=== PATIENT | male | born 1985 | race Caucasian/White ===

== ENCOUNTER 2017-01-08 20:34 | Observation (INO) | payer SELFPAY ==
[~2017-01-08] VITALS: Ht 188 cm; Wt 70.5 kg
[~2017-01-08 20:34] MED LIST: CLIN150 PO; IBUP800T23 PO
[2017-01-08 20:36] VITALS: BP 144/65; PULSE 111; RESP 16; TEMP 99.1; O2SAT 98
--- NOTE | 2017-01-08 21:15 | PD ---
Physical Exam Time Seen by Provider: 21:12 Narrative 31yo M c/o L knee infection x 1 week ago. Denies fever, vomiting. Admits to IV drug; used last yesterday. Patient seen in triage. VS reviewed. Awaiting bed placement. Data Data Last Documented VS Vital Signs Date Time Temp Pulse Resp B/P (MAP) Pulse Ox O2 Delivery O2 Flow Rate FiO2 01/08/17 20:36 99.1 111 16 144/65 (91) 98 Room Air MDM Supervised Visit with SANJEEV: Yolanda Raman Jan 08, 2017 21:15
[2017-01-08] MEDS ORDERED: SODIUM CHLORIDE 0.9% FLUSH 10 ML FLUSH IVF PRN (21:45)
[2017-01-08] MEDS ORDERED: KETOROLAC TROMETHAMINE 30 MG/ML (IVP) VIAL IVP ONE (21:45)
[2017-01-08] MEDS ORDERED: VANCOMYCIN INJ 1,000 MG in SODIUM CHLOR 0.9% 250 ML INJ 250 ML IV ONE (21:45)
[2017-01-08] MEDS ORDERED: CLINDAMYCIN INJ 900 MG in SODIUM CHLORIDE 0.9% INJ 100 ML IV ONE (21:45)
[2017-01-08] MEDS ORDERED: TETANUS/DIPHTHERIA TOXOID ADULT 0.5 ML VIAL IM ONE (21:45)
[2017-01-08] MEDS ORDERED: PIPERACIL-TAZO 4.5 GM PREMIX 100 ML IV ONE (21:45)
--- NOTE | 2017-01-08 21:45 | PD ---
HPI Chief Complaint: Skin Problem Time Seen by Provider: 21:33 Travel History International Travel<30 days: No Contact w/Intl Traveler<30days: No Traveled to known affect area: No History of Present Illness HPI 31-year-old male with history of MRSA presents the emergency department with a tender indurated sore wound to the left lateral knee. Patient states his been present for approximately one week and worse in the last 2 days. Patient is noted to have a low-grade temperature in triage with tachycardia. Pain is 8 out of 10. Patient has history of MRSA in the past. He states had some pus draining from the area earlier today. He has increasing pain along the lateral left knee extending to the left distal lateral thigh. 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 Patient has no known drug allergies. PFSH Past Medical History Hx Anticoagulant Therapy: No Cancer: No Cardiovascular Problems: No Chemotherapy: No Cerebrovascular Accident: No Diabetes: No GERD: Yes Hypertension: Yes Musculoskeletal: No Neurologic: No Psychiatric: No Respiratory: No Immunizations Current: Yes Social History Alcohol Use: Yes (everyday) Tobacco Use: Yes Substance Use: Yes (IV drug use, cocaine) Allergies-Medications (Allergen,Severity, Reaction): Coded Allergies: No Known Allergies (Unverified , 01/08/17) Reported Meds & Prescriptions Reported Meds & Active Scripts Active Review of Systems Except as stated in HPI: all other systems reviewed are Neg General / Constitutional: Positive: Fever, Chills Eyes: No: Visual changes HENT: No: Headaches Cardiovascular: No: Chest Pain or Discomfort Respiratory: No: Shortness of Breath Gastrointestinal: No: Abdominal Pain Genitourinary: No: Dysuria Musculoskeletal: Positive: Arthralgias, Limited ROM, Pain Skin: Positive Lesions (see history of present illness), No Rash Neurologic: No: Weakness Psychiatric: No: Depression Endocrine: No: Polydipsia Hematologic/Lymphatic: No: Easy Bruising Physical Exam Narrative GENERAL: Patient appears in mild to moderate distress. SKIN: Warm and dry. Normal color. Normal turgor. Patient has obvious open wound to the left lateral knee just above the patella with localized erythema, warmth, and induration. There is no palpable abscess appreciated. HEAD: Atraumatic. Normocephalic. EYES: Pupils equal and round. No scleral icterus. No injection or drainage. ENT: No nasal bleeding or discharge. Mucous membranes pink and moist. Pharynx is clear. Airway is patent NECK: Trachea midline. Supple. CARDIOVASCULAR: Regular rate and rhythm. RESPIRATORY: No accessory muscle use. Clear to auscultation. Breath sounds equal bilaterally. MUSCULOSKELETAL: Extremities without clubbing, cyanosis, or edema. No obvious deformities. Patient is able to flex and extend the left knee fully. Neurovascular exam is normal distally. NEUROLOGICAL: Awake and alert. No obvious cranial nerve deficits. Motor grossly within normal limits. Five out of 5 muscle strength in the arms and legs. Normal speech. PSYCHIATRIC: Appropriate mood and affect; insight and judgment normal. Data Data Last Documented VS Vital Signs Date Time Temp Pulse Resp B/P (MAP) Pulse Ox O2 Delivery O2 Flow Rate FiO2 01/08/17 20:36 99.1 111 16 144/65 (91) 98 Room Air Orders Orders Complete Blood Count With Diff (01/08/17 21:38) Blood Culture (01/08/17 21:38) Wound Culture And Gram Stain (01/08/17 21:38) Iv Access Insert/Monitor (01/08/17 21:38) Wound Care (01/08/17 21:38) Ketorolac Inj (Toradol Inj) (01/08/17 21:45) Sodium Chloride 0.9% Flush (Ns Flush) (01/08/17 21:45) Clindamycin Inj (Cleocin Inj) (01/08/17 21:45) Tetanus/Diphtheria Tox Adult (Tetanus/Di (01/08/17 21:45) Lactic Acid (01/08/17 21:38) Comprehensive Metabolic Panel (01/08/17 21:38) Vancomycin Inj (Vancomycin Inj) (01/08/17 21:45) Piperacil-Tazo 4.5 Gm Premix (Zosyn 4.5 (01/08/17 21:45) Knee, Ltd (1 Or 2vws) (01/08/17 21:47) Labs Laboratory Tests Test 01/08/17 21:50 White Blood Count 15.8 TH/MM3 Red Blood Count 4.83 MIL/MM3 Hemoglobin 13.7 GM/DL Hematocrit 42.1 % Mean Corpuscular Volume 87.1 FL Mean Corpuscular Hemoglobin 28.3 PG Mean Corpuscular Hemoglobin Concent 32.5 % Red Cell Distribution Width 14.1 % Platelet Count 304 TH/MM3 Mean Platelet Volume 7.0 FL Neutrophils (%) (Auto) 76.7 % Lymphocytes (%) (Auto) 10.7 % Monocytes (%) (Auto) 10.1 % Eosinophils (%) (Auto) 2.3 % Basophils (%) (Auto) 0.2 % Neutrophils # (Auto) 12.1 TH/MM3 Lymphocytes # (Auto) 1.7 TH/MM3 Monocytes # (Auto) 1.6 TH/MM3 Eosinophils # (Auto) 0.4 TH/MM3 Basophils # (Auto) 0.0 TH/MM3 CBC Comment DIFF FINAL Differential Comment Blood Urea Nitrogen 15 MG/DL Creatinine 0.98 MG/DL Random Glucose 68 MG/DL Total Protein 8.1 GM/DL Albumin 3.7 GM/DL Calcium Level 8.7 MG/DL Alkaline Phosphatase 102 U/L Aspartate Amino Transf (AST/SGOT) 40 U/L Alanine Aminotransferase (ALT/SGPT) 90 U/L Total Bilirubin 0.6 MG/DL Sodium Level 138 MEQ/L Potassium Level 3.3 MEQ/L Chloride Level 102 MEQ/L Carbon Dioxide Level 28.7 MEQ/L Anion Gap 7 MEQ/L Estimat Glomerular Filtration Rate 90 ML/MIN Lactic Acid Level 1.7 mmol/L [facility] Medical Decision Making Medical Screen Exam Complete: Yes Emergency Medical Condition: Yes Medical Record Reviewed: Yes Differential Diagnosis MRSA. Cellulitis. Early septic knee. Abscess. Narrative Course Patient is medically stable at time of exam. Patient appears medically stable at time of exam. Patient is discussed with and examined by Dr. Tyler. Wound culture is sent. X-ray of the left knee is ordered. Labs ordered including CBC, CMP, lactic acid, blood cultures 2. IV access is obtained and patient is given 4.5 mg Zosyn IV as well as 1000 mg vancomycin IV Patient is given 30 mg Toradol IV. CBC shows leukocytosis of 15.8 CMP shows sodium of 138, potassium 3.3 random glucose 68. AST slightly elevated at 40 and ALT is slightly elevated at 90. Alkaline phosphatase is 12. Lactic acid is 1.7. 2240 hrs. patient was discussed with Dr. Lees, the hospitalist, who felt the patient should have a trial of oral antibiotics on an outpatient basis before seeing the patient. I discussed this with Dr. Tyler feels the patient should be admitted. Dr. Tyler will talk with Dr. Lees regarding this patient's clinical course. Dr. Tyler spoke to Dr. Lees and patient was admitted. Diagnosis Primary Impression: Cellulitis of knee, left Admitting Information Admitting Physician Requests: Admit Condition: Stable Christopher Christiansen Jan 08, 2017 21:45
--- NOTE | 2017-01-08 21:48 | PD ---
Physical Exam Narrative Patient was seen and examined with my administrative assistant receptionist. Data Data Last Documented VS Vital Signs Date Time Temp Pulse Resp B/P (MAP) Pulse Ox O2 Delivery O2 Flow Rate FiO2 01/08/17 20:36 99.1 111 16 144/65 (91) 98 Room Air Orders Orders Complete Blood Count With Diff (01/08/17 21:38) Blood Culture (01/08/17 21:38) Wound Culture And Gram Stain (01/08/17 21:38) Iv Access Insert/Monitor (01/08/17 21:38) Wound Care (01/08/17 21:38) Ketorolac Inj (Toradol Inj) (01/08/17 21:45) Sodium Chloride 0.9% Flush (Ns Flush) (01/08/17 21:45) Clindamycin Inj (Cleocin Inj) (01/08/17 21:45) Tetanus/Diphtheria Tox Adult (Tetanus/Di (01/08/17 21:45) Lactic Acid (01/08/17 21:38) Comprehensive Metabolic Panel (01/08/17 21:38) Vancomycin Inj (Vancomycin Inj) (01/08/17 21:45) Piperacil-Tazo 4.5 Gm Premix (Zosyn 4.5 (01/08/17 21:45) MDM Supervised Visit with SANJEEV: Yes Srinivasan Tyler MD Jan 08, 2017 21:48
--- NOTE | 2017-01-08 22:08 | RADRPT ---
EXAM DATE/TIME: 01/08/2017 21:59 [place] COMPARISON: No previous studies available for comparison. INDICATIONS : Possible infection on top of knee. MEDICAL HISTORY : [place]. SURGICAL HISTORY : None. ENCOUNTER: Initial ACUITY: 4 - 6 days PAIN SCORE: 7/10 LOCATION: Left Top of knee FINDINGS: 2 views of the left knee demonstrate no fracture or dislocation. No joint effusion is present. There is no significant arthropathy and mineralization is within normal limits. No radiopaque foreign body is identified. There is prepatellar soft tissue swelling and subcutaneous edema. CONCLUSION: Prepatellar soft tissue swelling and subcutaneous edema. Josue King MD on January 08, 2017 at 22:05 Board Certified Radiologist. This report was verified electronically.
[2017-01-08 22:14] LABS: AUTOMATED NEUTROPHIL # 12.1 TH/MM3 (1.8-7.7); BASOPHIL % 0.2 % (0.0-2.0); EOSINOPHIL # 0.4 TH/MM3 (0-0.4); EOSINOPHIL % 2.3 % (0.0-4.0); HEMATOCRIT 42.1 % (39.0-51.0); HEMO FLAGS DIFF FINAL; LYMPH % 10.7 % (9.0-44.0); LYMPHOCYTE # 1.7 TH/MM3 (1.0-4.8); MEAN CELL VOLUME 87.1 FL (80.0-100.0); MEAN CORPUSCULAR HEMOGLOBIN 28.3 PG (27.0-34.0); MEAN CORPUSCULAR HGB CONC 32.5 % (32.0-36.0); MONO % 10.1 % (0.0-8.0); NEUT % 76.7 % (16.0-70.0); PLATELET COUNT 304 TH/MM3 (150-450); RED BLOOD COUNT 4.83 MIL/MM3 (4.50-5.90); RED CELL DISTRIBUTION WIDTH 14.1 % (11.6-17.2); WHITE BLOOD COUNT 15.8 TH/MM3 (4.0-11.0)
[2017-01-08 22:28] LABS: ANION GAP 7 MEQ/L (5-15); AST (GOT) 40 U/L (15-37); BICARBONATE 28.7 MEQ/L (21.0-32.0); BLOOD UREA NITROGEN 15 MG/DL (7-18); CHLORIDE 102 MEQ/L (98-107); GLOMERULAR FILTRATION RATE 90 ML/MIN (>89); POTASSIUM 3.3 MEQ/L (3.5-5.1); SODIUM (NA) 138 MEQ/L (136-145)
[2017-01-08 22:29] LABS: ALT (GPT) 90 U/L (12-78)
[2017-01-08 22:31] LABS: ALKALINE PHOSPHATASE 102 U/L (45-117); TOTAL BILIRUBIN ADULT 0.6 MG/DL (0.2-1.0)
[2017-01-08] MEDS ORDERED: Vancomycin Consult Pharmacy 1 EA OTHER SCH (23:00)
[2017-01-08] MEDS ORDERED: NALOXONE HCL 0.4 MG/ML AMP IV PRN (23:00)
[2017-01-08] MEDS ORDERED: SODIUM CHLORIDE 0.9% FLUSH 10 ML FLUSH IV FLUSH PRN (23:00)
[2017-01-08 23:51] VITALS: BP 113/53; PULSE 99; RESP 18; TEMP 98.8; O2SAT 98
[2017-01-09] VITALS (8 sets, daily range): BP systolic 101–163; BP diastolic 51–86; PULSE 56–79; RESP 16–18; TEMP 96.8–98.8; O2SAT 96–100
[2017-01-09] MEDS: PIPERACIL-TAZO 4.5 GM PREMIX 100 ML IV SCH ×4 (04:06→21:25)
--- NOTE | 2017-01-09 05:35 | HHI.HP ---
[facility] No Primary Care Physician Admission Diagnosis left leg cellulitis Diagnoses: (1) Cellulitis of knee, left Chief Complaint: left knee pain and swelling Travel History International Travel<30 Days: No Contact w/Intl Traveler <30 Da: No Traveled to Known Affected Are: No History of Present Illness Written by Carlie Moreojn, acting as scribe for Dr. Lees on 01/09/17 at 05:35. The patient is seen in the CDU. He states that on Thursday or Thursday, left leg with swelling and pain started and progressively worsened. Started as a "little pimple" and progressively worsened with swelling and pain but not really any erythema though there was some purulent exudate. 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 Denies fevers, nausea, vomiting, diarrhea, black or red stools. States he did not seek treatment and was not on antibiotics as an outpatient. Patient reports a history of MRSA Patient reports history of IVDA with recent use due to pain yesterday after being reportedly off drugs since June. Review of Systems Except as stated in HPI: all other systems reviewed are Neg Past Family Social History Past Medical History Occasional high blood pressure Denies diabetes, CAD, valvular heart disease, breathing problems, liver problems , kidney problems, DVT, PE, CVA, seizures, thyroid problems, or cancers . Past Surgical History right hand tendon repair left hand tendon repair . Reported Medications None Allergies: Coded Allergies: No Known Allergies (Unverified , 01/08/17) Active Ordered Medications Current Medications Ketorolac Tromethamine (Toradol Inj) 30 mg ONCE ONCE IVP Last administered on 01/08/17t 22:07; Start 01/08/17 at 21:45; Stop 01/08/17 at 21:46; Status DC Sodium Chloride (NS Flush) 2 ml UNSCH PRN IVF FLUSH AFTER USING IV ACCESS; Start 01/08/17 at 21:45; Stop 01/08/17 at 22:51; Status DC Clindamycin Phosphate 900 mg/ Sodium Chloride 106 ml @ 200 mls/hr ONCE ONCE IV ; Start 01/08/17 at 21:45; Stop 01/08/17 at 21:47; Status DC Tetanus/ Diphtheria Toxoids (Tetanus/ Diphtheria Tox Adult) 0.5 ml ONCE ONCE IM ; Start 01/08/17 at 21:45; Stop 01/08/17 at 21:46; Status DC Vancomycin HCl 1000 mg/Sodium Chloride 250 ml @ 250 mls/hr ONCE ONCE IV Last administered on 01/08/17 22:53; Start 01/08/17 at 21:45; Stop 01/08/17 at 22:44 ; Status DC Piperacillin Sod/ Tazobactam Sod 100 ml @ 200 mls/hr ONCE ONCE IV Last administered on 01/08/17 22:06; Start 01/08/17 at 21:45; Stop 01/08/17 at 22:14 ; Status DC Sodium Chloride (NS Flush) 2 ml UNSCH PRN IV FLUSH FLUSH AFTER USING IV ACCESS ; Start 01/08/17 at 23:00 Sodium Chloride (NS Flush) 2 ml BID IV FLUSH ; Start 01/09/17 at 09:00 Naloxone HCl (Narcan Inj) 0.4 mg UNSCH PRN IV SEE LABEL COMMENTS; Start at 23:00 Pharmacy Profile Note 0 ml @ 0 mls/hr UNSCH OTHER ; Start 01/08/17 at 23:00 Piperacillin Sod/ Tazobactam Sod 100 ml @ 200 mls/hr Q6H IV Last administered on 01/09/17 04:06; Start 01/09/17 at 04:00 . Family History denies any significant family medical history . Social History Tobacco: 1 05/19 PPD Alcohol: rare alcohol use Illicit drugs: 07/14 quit drugs and injected again day before yesterday - dilaudid and also used some methylamphetamine . Physical Exam Vital Signs Vital Signs Date Time Temp Pulse Resp B/P (MAP) Pulse Ox O2 Delivery O2 Flow Rate FiO2 01/09/17 03:43 74 01/09/17 03:10 98.0 78 18 113/70 (84) 98 01/08/17 23:51 98.8 99 18 113/53 (73) 98 01/08/17 23:45 01/08/17 22:53 18 01/08/17 20:36 99.1 111 16 144/65 (91) 98 Room Air Physical Exam GENERAL: This is a thin male patient, in no apparent distress. SKIN: Multiple sores on arms c/w appearance of disseminated MRSA. . Right elbow with swollen and erythematous lesion. Cool and dry. HEAD: Atraumatic. Normocephalic. EYES: Pupils equal round and reactive. No injection or drainage. ENT: Nose without bleeding, purulent drainage. NECK: Trachea midline. No JVD. CARDIOVASCULAR: Regular rate and rhythm without murmurs, gallops, or rubs. RESPIRATORY: Clear to auscultation. Breath sounds equal bilaterally. No wheezes , rales, or rhonchi. GASTROINTESTINAL: Abdomen soft, non-tender, nondistended. No guarding. MUSCULOSKELETAL: Extremities without clubbing, cyanosis. Left knee with edema and tenderness superior to knee. NEUROLOGICAL: Awake and alert. Motor and sensory grossly within normal limits. Normal speech. . Laboratory Laboratory Tests Test 01/08/17 21:50 White Blood Count 15.8 Red Blood Count 4.83 Hemoglobin 13.7 Hematocrit 42.1 Mean Corpuscular Volume 87.1 Mean Corpuscular Hemoglobin 28.3 Mean Corpuscular Hemoglobin Concent 32.5 Red Cell Distribution Width 14.1 Platelet Count 304 Mean Platelet Volume 7.0 Neutrophils (%) (Auto) 76.7 Lymphocytes (%) (Auto) 10.7 Monocytes (%) (Auto) 10.1 Eosinophils (%) (Auto) 2.3 Basophils (%) (Auto) 0.2 Neutrophils # (Auto) 12.1 Lymphocytes # (Auto) 1.7 Monocytes # (Auto) 1.6 Eosinophils # (Auto) 0.4 Basophils # (Auto) 0.0 CBC Comment DIFF FINAL Differential Comment Blood Urea Nitrogen 15 Creatinine 0.98 Random Glucose 68 Total Protein 8.1 Albumin 3.7 Calcium Level 8.7 Alkaline Phosphatase 102 Aspartate Amino Transf (AST/SGOT) 40 Alanine Aminotransferase (ALT/SGPT) 90 Total Bilirubin 0.6 Sodium Level 138 Potassium Level 3.3 Chloride Level 102 Carbon Dioxide Level 28.7 Anion Gap 7 Estimat Glomerular Filtration Rate 90 Lactic Acid Level 1.7 Date/Time Source Procedure Growth Status 01/08/17 21:50 Blood Peripheral Aerobic Blood Culture Pending Received 01/08/17 21:50 Blood Peripheral Anaerobic Blood Culture Pending Received 01/08/17 21:50 Wound Knee Gram Stain Pending Received 01/08/17 21:50 Wound Knee Wound Culture Pending Received Result Diagram: 01/08/17214901/08/[id number] Imaging Last Impressions Knee X-Ray 01/08/172146 Signed Impressions: Service Date/Time: December 21:59 - CONCLUSION: Prepatellar soft tissue swelling and subcutaneous edema. Josue King MD . Aguilar VTE Risk Assessment Caprinpinky VTE Risk Assessment: No/Low Risk (score <= 1) Caprini Risk Assessment Model Point Value = 1 Point Value = 2 Point Value = 3 Point Value = 5 Age 41-60 Minor surgery BMI > 25 kg/m2 Swollen legs Varicose veins or History of unexplained or recurrent spontaneous Oral contraceptives or hormone replacement Sepsis (< 1 month) Serious lung disease, including pneumonia (< 1 month) Abnormal pulmonary function Acute myocardial infarction Congestive heart failure (< 1 month) History of inflammatory bowel disease Medical patient at bed rest Age 61-74 Arthroscopic surgery Major open surgery (> 45 min) Laparoscopic surgery (> 45 min) Malignancy Confined to bed (> 72 hours) Immobilizing plaster cast Central venous access Age >= 75 History of VTE Family history of VTE Factor V Leiden Prothrombin [id number] Lupus anticoagulant Anticardiolipin antibodies Elevated serum homocysteine Heparin-induced thrombocytopenia Other congenital or acquired thrombophilia Stroke (< 1 month) Elective arthroplasty Hip, pelvis, or leg fracture Acute spinal cord injury (< 1 month) Prophylaxis Regimen Total Risk Factor Score Risk Level Prophylaxis Regimen 0-1 Low Early ambulation 2 Moderate Order ONE of the following: *Sequential Compression Device (SCD) *Heparin 5000 units SQ BID 3-4 Higher Order ONE of the following medications: *Heparin 5000 units SQ TID *Enoxaparin/Lovenox 40 mg SQ daily (WT < 150 kg, CrCl > 30 mL/min) *Enoxaparin/Lovenox 30 mg SQ daily (WT < 150 kg, CrCl > 10-29 mL/min) *Enoxaparin/Lovenox 30 mg SQ BID (WT < 150 kg, CrCl > 30 mL/min) AND/OR *Sequential Compression Device (SCD) 5 or more Highest Order ONE of the following medications: *Heparin 5000 units SQ TID (Preferred with Epidurals) *Enoxaparin/Lovenox 40 mg SQ daily (WT < 150 kg, CrCl > 30 mL/min) *Enoxaparin/Lovenox 30 mg SQ daily (WT < 150 kg, CrCl > 10-29 mL/min) *Enoxaparin/Lovenox 30 mg SQ BID (WT < 150 kg, CrCl > 30 mL/min) AND *Sequential Compression Device (SCD) Assessment and Plan Problem List: (1) Cellulitis of knee, left ICD Code: L03.116 - Cellulitis of left lower limb Status: Acute Assessment and Plan Left knee cellulitis in a patient with a history of MRSA - Antibiotics: IV vancomycin with pharmacy consult for assistance with therapeutic monitoring and dosing and Zosyn 4.5 g IV every 6 hours - contact isolation for infection control - Monitor vital signs every 4 hours - Consult infectious disease - assistance appreciated . This note was transcribed by [email or web address] [Carlie Morejon]. I, Dr. Lalit Lees personally performed the history, physical exam, and medical decision making; and confirmed the accuracy of the information in the transcribed note. Authenticated by Dr. Lalit Lees on 01/09/17 at 05:35. Discussed Condition With ER physician, ER PA, RN, and patient . Carlie Morejon Jan 09, 2017 05:35 Lalit Lees MD Jan 16, 2017 08:03
[2017-01-09 06:16] LABS: AUTOMATED NEUTROPHIL # 11.1 TH/MM3 (1.8-7.7); BASOPHIL # 0.1 TH/MM3 (0-0.2); BASOPHIL % 0.5 % (0.0-2.0); EOSINOPHIL # 0.9 TH/MM3 (0-0.4); EOSINOPHIL % 5.9 % (0.0-4.0); HEMATOCRIT 37.9 % (39.0-51.0); HEMO FLAGS DIFF FINAL; LYMPH % 11.6 % (9.0-44.0); LYMPHOCYTE # 1.9 TH/MM3 (1.0-4.8); MEAN CELL VOLUME 86.7 FL (80.0-100.0); MEAN CORPUSCULAR HEMOGLOBIN 29.1 PG (27.0-34.0); MEAN CORPUSCULAR HGB CONC 33.6 % (32.0-36.0); MONO % 12.5 % (0.0-8.0); NEUT % 69.5 % (16.0-70.0); PLATELET COUNT 273 TH/MM3 (150-450); RED BLOOD COUNT 4.37 MIL/MM3 (4.50-5.90); RED CELL DISTRIBUTION WIDTH 13.7 % (11.6-17.2)
[2017-01-09 06:51] LABS: BICARBONATE 27.4 MEQ/L (21.0-32.0); POTASSIUM 3.6 MEQ/L (3.5-5.1)
[2017-01-09] MEDS ORDERED: KETOROLAC TROMETHAMINE 30 MG/ML (IVP) VIAL IV PUSH ONE (08:30)
[2017-01-09] MEDS: SODIUM CHLORIDE 0.9% FLUSH 10 ML FLUSH IV FLUSH SCH ×2 (08:48→20:50)
[2017-01-09] MEDS: VANCOMYCIN INJ 1,250 MG in SODIUM CHLOR 0.9% 250 ML INJ 250 ML IV SCH (12:17)
--- NOTE | 2017-01-09 16:16 | HHI.PR ---
Addendum to Inpatient Note Addendum Reason: Additional Documentation Additional Information Patient seen and examined. The area of cellulitis involving the left knee decreased some. He reports good improvement so far. He has some pain with moving the joint but reports this has improved as well. On exam, cellulitis decreased. Can move the knee joint. Does not have an impressive effusion at this time. Continue IV antibiotics. Certainly at risk for complications such as septic joint. Awaiting further input from infectious disease. Rajendra Gregg MD Jan 09, 2017 16:16
--- NOTE | 2017-01-09 16:50 | PD.ID.CON ---
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 His wound cl growing MRSA Blood cls remain negative Pt has no fevr, but leukocytrosis of 16 K on presentation Review of Systems Except as stated in HPI: all other systems reviewed are Neg Past Family Social History Allergies: Coded Allergies: No Known Allergies (Unverified , 01/08/17) Past Medical History LTBI IV meth and IV dilaudid Past Surgical History none Active Ordered Medications Medications where reviewed in EMR Antibiotics Include: vancomycin zosyn Family History reviewed [place] Social History IV drugs no ETOH + tobacco Physical Exam Vital Signs Vital Signs Date Time Temp Pulse Resp B/P (MAP) Pulse Ox O2 Delivery O2 Flow Rate FiO2 01/09/17 14:02 98.2 79 18 123/56 (78) 99 01/09/17 09:38 98.1 56 16 101/51 (68) 96 01/09/17 07:32 61 01/09/17 03:43 74 01/09/17 03:10 98.0 78 18 113/70 (84) 98 01/08/17 23:51 98.8 99 18 113/53 (73) 98 01/08/17 23:45 01/08/17 22:53 18 01/08/17 20:36 99.1 111 16 144/65 (91) 98 Room Air Physical Exam CONSTITUTIONAL/GENERAL: This is an adequately nourished patient, in no apparent distress. TUBES/LINES/DRAINS: SKIN: No jaundice, rashes, or lesions. Ecchymoses on upper extremities. No wounds seen anteriorly. Skin temperature appropriate. Not diaphoretic. Draining erythematous lesion over L knee cap with moderate erythema and edema around it that appears to shrink (less than cirlced borders) Drains thick white pus mixed with blood, odorless No lymphangitic srteaakes observed Healing R forearm lesion - not draining any more HEAD: Atraumatic. Normocephalic. EYES: Pupils equal and round and reactive. Extraocular motions intact. No scleral icterus. No injection or drainage. Fundi not examined. ENT: Hearing grossly normal. Nose without bleeding or purulent drainage. Throat without visible erythema, exudates, masses, or lesions. NECK: Trachea midline. Supple, nontender. CARDIOVASCULAR: Regular rate and rhythm without murmurs, gallops, or rubs. No JVD. Peripheral pulses symmetric. RESPIRATORY/CHEST: Symmetric, unlabored respirations. Clear to auscultation. Breath sounds equal bilaterally. No wheezes, rales, or rhonchi. GASTROINTESTINAL: Abdomen soft, non-tender, nondistended. No hepato-splenomegaly , or palpable masses. No guarding. Bowel sounds present. MUSCULOSKELETAL: Extremities without clubbing, cyanosis, or edema. No joint tenderness or effusion noted. No calf tenderness. No mottling or clubbing. LYMPHATICS: No palpable cervical or supraclavicular adenopathy. NEUROLOGICAL: Awake and alert. Motor and sensory grossly within normal limits. Follows commands. Cognitively sharp. Moves all extremities. PSYCHIATRIC: No obvious anxiety/depression. no apparent hallucinations or other psychotic thought process. Laboratory Laboratory Tests Test 01/08/17 21:50 01/09/17 05:07 White Blood Count 15.8 16.0 Red Blood Count 4.83 4.37 Hemoglobin 13.7 12.7 Hematocrit 42.1 37.9 Mean Corpuscular Volume 87.1 86.7 Mean Corpuscular Hemoglobin 28.3 29.1 Mean Corpuscular Hemoglobin Concent 32.5 33.6 Red Cell Distribution Width 14.1 13.7 Platelet Count 304 273 Mean Platelet Volume 7.0 7.6 Neutrophils (%) (Auto) 76.7 69.5 Lymphocytes (%) (Auto) 10.7 11.6 Monocytes (%) (Auto) 10.1 12.5 Eosinophils (%) (Auto) 2.3 5.9 Basophils (%) (Auto) 0.2 0.5 Neutrophils # (Auto) 12.1 11.1 Lymphocytes # (Auto) 1.7 1.9 Monocytes # (Auto) 1.6 2.0 Eosinophils # (Auto) 0.4 0.9 Basophils # (Auto) 0.0 0.1 CBC Comment DIFF FINAL DIFF FINAL Differential Comment Blood Urea Nitrogen 15 19 Creatinine 0.98 0.98 Random Glucose 68 86 Total Protein 8.1 Albumin 3.7 Calcium Level 8.7 8.5 Alkaline Phosphatase 102 Aspartate Amino Transf (AST/SGOT) 40 Alanine Aminotransferase (ALT/SGPT) 90 Total Bilirubin 0.6 Sodium Level 138 139 Potassium Level 3.3 3.6 Chloride Level 102 103 Carbon Dioxide Level 28.7 27.4 Anion Gap 7 9 Estimat Glomerular Filtration Rate 90 90 Lactic Acid Level 1.7 Date/Time Source Procedure Growth Status 01/08/17 21:50 Blood Peripheral Aerobic Blood Culture - Preliminary NO GROWTH IN 1 DAY Resulted 01/08/17 21:50 Blood Peripheral Anaerobic Blood Culture - Preliminary NO GROWTH IN 1 DAY Resulted 01/08/17 21:50 Wound Knee Gram Stain - Final Resulted 01/08/17 21:50 Wound Culture - Preliminary S. Aureus Mrsa Resulted Result Diagram: 01/09/17 0507 01/09/17 0507 Imaging Last Impressions Knee X-Ray 01/08/172146 Signed Impressions: Service Date/Time: December 21:59 - CONCLUSION: Prepatellar soft tissue swelling and subcutaneous edema. Josue King MD Assessment and Plan Assessment and Plan L knee cap abscess, MRSA IVDU - cont vanco - dc clinda, zosyn - consult sx for bedside I+D Liliana Parada MD Jan 09, 2017 16:50
[2017-01-09] MEDS: KETOROLAC TROMETHAMINE 30 MG/ML (IVP) VIAL IV PUSH PRN (17:55)
[2017-01-09] MEDS: FAMOTIDINE 20 MG TAB PO SCH (20:50)
--- NOTE | 2017-01-09 23:13 | PD.CONS ---
cc: Salvatore Portillo MD HPI Service Orthopedic Surgeons Consult Requested By MANUELA Atkins Reason for Consult Left leg cellulitis Primary Care Physician No Primary Care Physician Admission Diagnosis left leg cellulitis Diagnoses: (1) Cellulitis of knee, left Chief Complaint: Infection of soft tissue left knee History of Present Illness The patient is seen in the CDU. He states that on Thursday or Thursday, left leg with swelling and pain started and progressively worsened. Started as a "little pimple" and progressively worsened with swelling and pain but not really any erythema though there was some purulent exudate. 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 Denies fevers, nausea, vomiting, diarrhea, black or red stools. States he did not seek treatment and was not on antibiotics as an outpatient. 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 Patient reports history of IVDA with recent use due to pain yesterday after being reportedly off drugs since June. He was seen by infectious disease who recommended general surgery evaluation for bedside debridement. They were consulted but felt it was an orthopedic problem. Review of Systems Reviewed and well outlined in the medical record Past Family Social History Past Medical History Occasional high blood pressure Denies diabetes, CAD, valvular heart disease, breathing problems, liver problems , kidney problems, DVT, PE, CVA, seizures, thyroid problems, or cancers . Past Surgical History right hand tendon repair left hand tendon repair . Allergies: Coded Allergies: No Known Allergies (Unverified , 01/08/17) Active Ordered Medications Current Medications Medications (Trade) Dose Ordered Sig/Tricia Route Start Time Stop Time Status Last Admin (NS Flush) 2 ml UNSCH PRN IV FLUSH 01/08/17 23:00 (NS Flush) 2 ml BID IV FLUSH 01/09/17 09:00 01/09/17 20:50 (Narcan Inj) 0.4 mg UNSCH PRN IV 01/08/17 23:00 Pharmacy Profile Note 0 ml @ 0 mls/hr UNSCH OTHER 01/08/17 23:00 Piperacillin Sod/ Tazobactam Sod 100 ml @ 200 mls/hr Q6H IV 01/09/17 04:00 01/09/17 21:25 Vancomycin HCl 1250 mg/Sodium Chloride 262.5 ml @ 250 mls/hr Q12H IV 01/09/17 11:00 01/09/17 12:17 Miscellaneous Information SPECIFIC LAB TO BE VINOD... ONCE ONCE .XX 01/10/17 10:45 01/10/17 10:46 (Toradol Inj) 15 mg Q6H PRN IV PUSH 01/09/17 17:15 01/14/17 17:14 01/09/17 17:55 (Pepcid) 20 mg BID PO 01/09/17 21:00 01/09/17 20:50 Reported Meds & Active Scripts Active Family History denies any significant family medical history . Social History Tobacco: 1 05/19 PPD Alcohol: rare alcohol use Illicit drugs: 07/14 quit drugs and injected again day before yesterday - dilaudid and also used some methylamphetamine . Physical Exam Vital Signs Vital Signs Date Time Temp Pulse Resp B/P (MAP) Pulse Ox O2 Delivery O2 Flow Rate FiO2 01/09/17 20:18 61 01/09/17 19:58 98.8 62 18 111/66 (81) 100 01/09/17 17:35 98.6 59 16 117/56 (76) 100 01/09/17 14:02 98.2 79 18 123/56 (78) 99 01/09/17 09:38 98.1 56 16 101/51 (68) 96 01/09/17 07:32 61 01/09/17 03:43 74 01/09/17 03:10 98.0 78 18 113/70 (84) 98 01/08/17 23:51 98.8 99 18 113/53 (73) 98 01/08/17 23:45 Physical Exam There is an approximate 3-4 cm area of erythema over the lateral aspect of the left knee. There is an area of skin that was marked with a sharpie which shows significant decrease in the area of involvement. There is no knee effusion. The patient is able to move his knee with minimal discomfort although not fully in flexion. There is no instability. He has an area of eschar in the central aspect of the erythema without active drainage. There is no fluctuance. He has full mobility of the hip as well as the ankle. He has mild calf discomfort at rest. There is no palpable calf discomfort or swelling. He has a negative Homans sign. Laboratory Laboratory Tests Test 01/09/17 05:07 White Blood Count 16.0 Red Blood Count 4.37 Hemoglobin 12.7 Hematocrit 37.9 Mean Corpuscular Volume 86.7 Mean Corpuscular Hemoglobin 29.1 Mean Corpuscular Hemoglobin Concent 33.6 Red Cell Distribution Width 13.7 Platelet Count 273 Mean Platelet Volume 7.6 Neutrophils (%) (Auto) 69.5 Lymphocytes (%) (Auto) 11.6 Monocytes (%) (Auto) 12.5 Eosinophils (%) (Auto) 5.9 Basophils (%) (Auto) 0.5 Neutrophils # (Auto) 11.1 Lymphocytes # (Auto) 1.9 Monocytes # (Auto) 2.0 Eosinophils # (Auto) 0.9 Basophils # (Auto) 0.1 CBC Comment DIFF FINAL Differential Comment Blood Urea Nitrogen 19 Creatinine 0.98 Random Glucose 86 Calcium Level 8.5 Sodium Level 139 Potassium Level 3.6 Chloride Level 103 Carbon Dioxide Level 27.4 Anion Gap 9 Estimat Glomerular Filtration Rate 90 Date/Time Source Procedure Growth Status 01/08/17 21:50 Blood Peripheral Aerobic Blood Culture - Preliminary NO GROWTH IN 1 DAY Resulted 01/08/17 21:50 Blood Peripheral Anaerobic Blood Culture - Preliminary NO GROWTH IN 1 DAY Resulted 01/08/17 21:50 Wound Knee Gram Stain - Final Resulted 01/08/17 21:50 Wound Culture - Preliminary S. Aureus Mrsa Resulted Result Diagram: 01/09/17 0507 01/09/17 0507 Imaging Last 48 hours Impressions Knee X-Ray [id number]/08/172146 Signed Impressions: Service Date/Time: December 21:59 - CONCLUSION: Prepatellar soft tissue swelling and subcutaneous edema. Josue King MD Assessment & Plan Problem List: (1) Cellulitis of knee, left ICD Codes: L03.116 - Cellulitis of left lower limb Status: Acute Plan: The findings were discussed. Recommendations are for local wound care. There is no clinical evidence of a septic joint. There is no significant abscess formation by examination. The patient has noted improvement with regards to the pain and objectively the area of erythema and swelling have improved. Continue antibiotics per infectious disease. Local removal of the eschar could be completed by the CDU staff. He may benefit from the use of heat and cleansing the wound with antibiotic soap. He can be discharged from an orthopedic standpoint as clinical situation allows. Follow-up with orthopedics on an as-needed basis. (2) Polysubstance abuse ICD Codes: F19.10 - Other psychoactive substance abuse, uncomplicated Status: Chronic (3) Benign hypertension ICD Codes: I10 - Essential (primary) hypertension Status: Acute Salvatore Portillo MD Jan 09, 2017 23:13
[2017-01-10] VITALS (10 sets, daily range): BP systolic 113–137; BP diastolic 53–68; PULSE 53–78; RESP 17–20; TEMP 97.6–98.6; O2SAT 96–100
[2017-01-10] MEDS: VANCOMYCIN INJ 1,250 MG in SODIUM CHLOR 0.9% 250 ML INJ 250 ML IV SCH ×2 (00:11→11:37)
[2017-01-10] MEDS: KETOROLAC TROMETHAMINE 30 MG/ML (IVP) VIAL IV PUSH PRN (01:23)
[2017-01-10] MEDS: PIPERACIL-TAZO 4.5 GM PREMIX 100 ML IV SCH ×3 (04:06→16:40)
--- NOTE | 2017-01-10 08:41 | PD.ORT.PN ---
Subjective Pain Scale: 4 Subjective Remarks The patient is awake alert and answers questions appropriately. He is having less pain. He feels he is improving. Objective Vitals Vital Signs Date Time Temp Pulse Resp B/P (MAP) Pulse Ox O2 Delivery O2 Flow Rate FiO2 01/10/17 07:34 98.1 54 19 126/58 (80) 99 01/10/17 04:40 58 01/10/17 03:35 97.8 67 17 125/60 (81) 99 01/10/17 00:39 60 01/10/17 00:04 97.9 77 18 113/53 (73) 100 01/09/17 20:18 61 01/09/17 19:58 98.8 62 18 111/66 (81) 100 01/09/17 17:35 98.6 59 16 117/56 (76) 100 01/09/17 14:02 98.2 79 18 123/56 (78) 99 01/09/17 09:38 98.1 56 16 101/51 (68) 96 I/O 01/09/17 01/09/17 01/09/17 01/10/17 01/10/17 01/10/17 07:00 15:00 23:00 07:00 15:00 23:00 Intake Total 250 ml Output Total 400 ml 400 ml Balance 250 ml -400 ml -400 ml Intake IV Total 250 ml Output Urine Total 400 ml 400 ml # Voids 2 Result Diagram: 01/09/17 0507 01/09/17 0507 Objective Remarks The patient has improved range of motion of the left knee. The eschar noted last night is no longer present. The wound is open despite orders for dressings to be placed. There is no active drainage. There is no knee effusion. Assessment & Plan Problem List: (1) Cellulitis of knee, left ICD Codes: L03.116 - Cellulitis of left lower limb Status: Acute Plan: The findings were discussed. The patient continues to improve. Continue antibiotics per ID. Continue local wound care. No acute orthopedic intervention required. (2) Polysubstance abuse ICD Codes: F19.10 - Other psychoactive substance abuse, uncomplicated Status: Chronic (3) Benign hypertension ICD Codes: I10 - Essential (primary) hypertension Status: Acute Salvatore Portillo MD Jan 10, 2017 08:41
--- NOTE | 2017-01-10 09:07 | HHI.PR ---
Subjective Remarks Follow up for left knee cellulitis. The patient reports continued improvement overnight, much less erythema/edema. He reports increased range of motion. He denies any fevers or chills. He wants to go home. Objective Vitals Vital Signs Date Time Temp Pulse Resp B/P (MAP) Pulse Ox O2 Delivery O2 Flow Rate FiO2 01/10/17 07:34 98.1 54 19 126/58 (80) 99 01/10/17 04:40 58 01/10/17 03:35 97.8 67 17 125/60 (81) 99 01/10/17 00:39 60 01/10/17 00:04 97.9 77 18 113/53 (73) 100 01/09/17 20:18 61 01/09/17 19:58 98.8 62 18 111/66 (81) 100 01/09/17 17:35 98.6 59 16 117/56 (76) 100 01/09/17 14:02 98.2 79 18 123/56 (78) 99 01/09/17 09:38 98.1 56 16 101/51 (68) 96 I/O 01/09/17 01/09/17 01/09/17 01/10/17 01/10/17 01/10/17 07:00 15:00 23:00 07:00 15:00 23:00 Intake Total 250 ml Output Total 400 ml 400 ml Balance 250 ml -400 ml -400 ml Intake IV Total 250 ml Output Urine Total 400 ml 400 ml # Voids 2 Result Diagram: 01/09/17 0507 01/09/17 0507 Imaging Last Impressions Knee X-Ray 01/08/172146 Signed Impressions: Service Date/Time: December 21:59 - CONCLUSION: Prepatellar soft tissue swelling and subcutaneous edema. Josue King MD Objective Remarks GENERAL: Well-nourished, well-developed young male patient in [facility]. SKIN: Warm and dry. Left lateral knee with erythema, edema, bloody drainage; erythema has regressed from previously marked borders. HEENT: Normocephalic. Atraumatic. Pupils equal and round. Mucous membranes pink and moist. CARDIOVASCULAR: Regular rate and rhythm. S1, S2 noted. No murmur appreciated. RESPIRATORY: No accessory muscle use. Clear to auscultation. Breath sounds equal bilaterally. GASTROINTESTINAL: Abdomen soft, non-tender, nondistended. Normoactive bowel sounds x4. MUSCULOSKELETAL: No obvious deformities. Extremities without clubbing, cyanosis , or edema. NEUROLOGICAL: Awake and alert. No obvious cranial nerve deficits. Motor grossly within normal limits. Normal speech. PSYCHIATRIC: Appropriate mood and affect; insight and judgment normal. Medications and IVs Current Medications Medications (Trade) Dose Ordered Sig/Tricia Route Start Time Stop Time Status Last Admin (NS Flush) 2 ml UNSCH PRN IV FLUSH 01/08/17 23:00 (NS Flush) 2 ml BID IV FLUSH 01/09/17 09:00 01/09/17 20:50 (Narcan Inj) 0.4 mg UNSCH PRN IV 01/08/17 23:00 Pharmacy Profile Note 0 ml @ 0 mls/hr UNSCH OTHER 01/08/17 23:00 Piperacillin Sod/ Tazobactam Sod 100 ml @ 200 mls/hr Q6H IV 01/09/17 04:00 01/10/17 04:06 Vancomycin HCl 1250 mg/Sodium Chloride 262.5 ml @ 250 mls/hr Q12H IV 01/09/17 11:00 01/10/17 00:11 Miscellaneous Information SPECIFIC LAB TO BE VINOD... ONCE ONCE .XX 01/10/17 10:45 01/10/17 10:46 (Toradol Inj) 15 mg Q6H PRN IV PUSH 01/09/17 17:15 01/14/17 17:14 01/10/17 01:23 (Pepcid) 20 mg BID PO 01/09/17 21:00 01/09/17 20:50 A/P Problem List: (1) Cellulitis of knee, left ICD Code: L03.116 - Cellulitis of left lower limb Status: Acute Assessment and Plan 31-year-old male with history of MRSA skin infections presents with a 5 day history of left knee swelling, pain, and purulent drainage. Sepsis with Left Knee Cellulitis/Abscess: Patient meets sepsis criteria with tachycardia HR 114, +Leukocytosis with WBC 16K, and source-abscess. Knee Xray images reviewed, prepatellar soft tissue swelling and subcutaneous edema. Wound culture with MRSA. - Continue Antibiotics with IV vancomycin, pharmacy consulted - Consult infectious disease - assistance appreciated - Ortho consulted, no surgical intervention needed, abscess draining spontaneously - dressing changes with Telfa/gauze daily - pain control with IV Toradol prn - symptoms much improved, patient wants to go home, will await clearance from ID DVT Prophylaxis: low risk, early ambulation Discharge Planning Discharge pending transition to oral antibiotics and clearance from ID. Jolly Goncalves PA-C Jan 10, 2017 9:07 am
[2017-01-10] MEDS: FAMOTIDINE 20 MG TAB PO SCH ×2 (10:05→20:29)
[2017-01-10] MEDS: SODIUM CHLORIDE 0.9% FLUSH 10 ML FLUSH IV FLUSH SCH ×2 (10:05→20:29)
[2017-01-10] MEDS ORDERED: PHARMACY ORDERED LAB ONE (10:45)
--- NOTE | 2017-01-10 19:32 | HHI.PR ---
Addendum to Inpatient Note Addendum Reason: Additional Documentation Additional Information culture reviewed S to clindamycin OK to dc on clindamycin po 300 mg x 7- 10 days Liliana Parada MD Jan 10, 2017 19:32
[2017-01-10] MEDS ORDERED: CLIN1CAP6 PO (19:34)
[2017-01-10] MEDS ORDERED: CLINDAMYCIN 150 MG CAP PO SCH (20:00)
--- NOTE | 2017-01-10 21:23 | HHI.DCPOC ---
Discharge Care Plan Diagnosis: (1) Cellulitis of knee, left Your Health Problems Are: Skin Breakdown (left knee infection) Additional Problems Tobacco abuse - recommend that you quit smoking Polysubstance abuse - recommend that you seek counselling and treatment Goals to Promote Your Health * To prevent worsening of your condition and complications * To maintain your health at the optimal level Directions to Meet Your Goals Take your medications as prescribed Follow your dietary instruction Follow activity as directed Keep your appointments as scheduled Take your immunizations and boosters as scheduled If your symptoms worsen call your PCP, if no PCP go to Urgent Care Center or Emergency Room Smoking is Dangerous to Your Health. Avoid second hand smoke Call the 24-hour hour crisis hotline for domestic abuse at Carlie Morejon Jan 10, 2017 21:23
[2017-01-12] MEDS ORDERED: PHARMACY ORDERED LAB ONE (10:45)
== END 2017-01-10 22:59 | disposition home or self-care (01) ==
LOC: NEPE 20:34 → INTOOBSV 22:49 → NEDA 22:49 → NEPFCDU 23:47
PROVIDERS: ADMIT Family Medicine; ATTEND Family Medicine
DX: L03.116 Cellulitis of left lower limb (principal); L98.9 Disorder of the skin and subcutaneous tissue, unspecified; R00.0 Tachycardia, unspecified; M25.50 Pain in unspecified joint; I10 Essential (primary) hypertension; K21.9 Gastro-esophageal reflux disease without esophagitis; F19.10 Other psychoactive substance abuse, uncomplicated; F17.200 Nicotine dependence, unspecified, uncomplicated; Z86.14 Personal history of Methicillin resistant Staphylococcus aureus infection
CPT/HCPCS: 73560; 80048; 80053; 80202; 83605; 85025; 86403; 87040; 87070; 87147; 87186; 87205; 96365; 96366; 96375; 96376; 99285; G0378; J1885; J2543; J3370; J7050

== ENCOUNTER 2017-04-25 17:43 | Observation (INO) | payer SELFPAY ==
[~2017-04-25] VITALS: Ht 188 cm; Wt 76.5 kg
[~2017-04-25 17:43] MED LIST changes: -CLIN150 PO; +CLIN300C5 PO; -IBUP800T23 PO; +LIDOCAINE HCL 1% PF 5 ML SYRINGE OTHER ONE; +PROPOFOL 200 MG/20 ML AMP IV ONE; +ceFAZolin INJ 1,000 MG VIAL IV ONE; +ePHEDrine/NS 25 MG/5 ML SYRINGE IV ONE
[2017-04-25 17:50] VITALS: BP 125/95; PULSE 71; RESP 18; TEMP 98.4; O2SAT 99
[2017-04-25] MEDS ORDERED: HYDROmorphone HCL PF 1 MG/ML VIAL IV PUSH ONE (18:00)
[2017-04-25] MEDS ORDERED: TETANUS/DIPHTHERIA TOXOID ADULT 0.5 ML VIAL IM ONE (18:00)
[2017-04-25] MEDS ORDERED: ceFAZolin 2 GM PREMIX 50 ML IV ONE (18:00)
[2017-04-25] MEDS ORDERED: SODIUM CHLORIDE 0.9% FLUSH 10 ML FLUSH IV FLUSH PRN ×2 (18:00→19:15)
--- NOTE | 2017-04-25 18:04 | PD ---
HPI Chief Complaint: left hand injury Time Seen by Provider: 17:47 Travel History International Travel<30 days: No Contact w/Intl Traveler<30days: No Traveled to known affect area: No History of Present Illness HPI 31-year-old male brought in by ambulance after injuring his left hand with a table saw. Injury occurred about 20 minutes prior to arrival. He was given morphine by EMS, however states his pain is severe and constant. He denies any other injuries. Date of last tetanus is unknown. He complains of a tingling sensation to his left fifth finger. He is right-hand dominant. PFSH Past Medical History Hx Anticoagulant Therapy: No Asthma: No Blood Disorders: No Heart Rhythm Problems: No Cancer: Yes Cardiovascular Problems: Yes High Cholesterol: No Chemotherapy: No Chest Pain: No Congestive Heart Failure: No COPD: No Cerebrovascular Accident: No Diabetes: No Endocrine: No Gastrointestinal Disorders: Yes GERD: Yes Genitourinary: No Hypertension: Yes Immune Disorder: No Implanted Vascular Access Dvce: No Musculoskeletal: No Neurologic: No Psychiatric: No Reproductive: No Respiratory: Yes (LATENT TUBERCULOSIS) Immunizations Current: Yes Radiation Therapy: No Sleep Apnea: No Thyroid Disease: No Past Surgical History Other Surgery: Yes (right arm; left arm; right hand ) Social History Alcohol Use: Yes (everyday) Tobacco Use: Yes Substance Use: Yes (IV METH, IV DILAUDID) Allergies-Medications (Allergen,Severity, Reaction): Coded Allergies: No Known Allergies (Unverified , 01/08/17) Reported Meds & Prescriptions Reported Meds & Active Scripts Active Clindamycin (Clindamycin HCl) 300 Mg Cap 300 Mg PO Q6H 10 Days Review of Systems Except as stated in HPI: all other systems reviewed are Neg Physical Exam Narrative GENERAL: Well-developed, well-nourished, awake, alert, comfortable, no apparent distress. SKIN: Left medial hand with approximately 5 cm horizontal laceration about 1 cm proximal to the fifth MCP joint of moderate depth, no visible contaminants, no active bleeding. Patient is unable to flex his left fifth finger. There is normal range of extension to left fifth finger. Patient has sensation in the fifth finger, however states it feels tingling. Normal capillary refill in the left fifth finger as well as entire left hand. HEAD: Atraumatic. Normocephalic. EYES: Pupils equal and round. No scleral icterus. No injection or drainage. ENT: No nasal bleeding or discharge. Mucous membranes pink and moist. NECK: Trachea midline. No JVD. CARDIOVASCULAR: Regular rate and rhythm. Bilateral distal radial pulses are brisk and equal. Normal capillary refill in left fifth finger and left hand. RESPIRATORY: No accessory muscle use. Clear to auscultation. Breath sounds equal bilaterally. GASTROINTESTINAL: Abdomen soft, non-tender, nondistended. Hepatic and splenic margins not palpable. MUSCULOSKELETAL: Skin exam as above. No other injuries. NEUROLOGICAL: Awake and alert. No obvious cranial nerve deficits. Motor grossly within normal limits. Normal speech. PSYCHIATRIC: Appropriate mood and affect; insight and judgment normal. Data Data Last Documented VS Vital Signs Date Time Temp Pulse Resp B/P (MAP) Pulse Ox O2 Delivery O2 Flow Rate FiO2 04/25/17 18:28 69 19 99 04/25/17 17:50 98.4 125/95 (105) Orders Orders Complete Blood Count With Diff (04/25/17 17:52) Comprehensive Metabolic Panel (04/25/17 17:52) Prothrombin Time / Inr (Pt) (04/25/17 17:52) Act Partial Throm Time (Ptt) (04/25/17 17:52) Iv Access Insert/Monitor (04/25/17 17:52) Ecg Monitoring (04/25/17 17:52) Oximetry (04/25/17 17:52) Sodium Chloride 0.9% Flush (Ns Flush) (04/25/17 18:00) Hydromorphone Pf Inj (Dilaudid Pf Inj) (04/25/17 18:00) Tetanus/Diphtheria Tox Adult (Tetanus/Di (04/25/17 18:00) Hand, Complete ([id number]) (04/25/17 ) Cefazolin 2 Gm Premix (Ancef 2 Gm Premix (04/25/17 18:00) NPO (04/25/17 18:18) Admit Order (Ed Use Only) (04/25/17 19:11) Labs Laboratory Tests Test 04/25/17 18:05 White Blood Count 10.5 TH/MM3 Red Blood Count 4.68 MIL/MM3 Hemoglobin 13.8 GM/DL Hematocrit 39.4 % Mean Corpuscular Volume 84.1 FL Mean Corpuscular Hemoglobin 29.5 PG Mean Corpuscular Hemoglobin Concent 35.1 % Red Cell Distribution Width 13.4 % Platelet Count 257 TH/MM3 Mean Platelet Volume 7.6 FL Neutrophils (%) (Auto) 70.7 % Lymphocytes (%) (Auto) 19.3 % Monocytes (%) (Auto) 7.7 % Eosinophils (%) (Auto) 1.7 % Basophils (%) (Auto) 0.6 % Neutrophils # (Auto) 7.4 TH/MM3 Lymphocytes # (Auto) 2.0 TH/MM3 Monocytes # (Auto) 0.8 TH/MM3 Eosinophils # (Auto) 0.2 TH/MM3 Basophils # (Auto) 0.1 TH/MM3 CBC Comment DIFF FINAL Differential Comment Prothrombin Time 10.2 SEC Prothromb Time International Ratio 1.0 RATIO Activated Partial Thromboplast Time 26.8 SEC Blood Urea Nitrogen 12 MG/DL Creatinine 1.01 MG/DL Random Glucose 86 MG/DL Total Protein 7.3 GM/DL Albumin 3.6 GM/DL Calcium Level 8.7 MG/DL Alkaline Phosphatase 80 U/L Aspartate Amino Transf (AST/SGOT) 43 U/L Alanine Aminotransferase (ALT/SGPT) 76 U/L Total Bilirubin 0.2 MG/DL Sodium Level 141 MEQ/L Potassium Level 3.8 MEQ/L Chloride Level 108 MEQ/L Carbon Dioxide Level 23.4 MEQ/L Anion Gap 10 MEQ/L Estimat Glomerular Filtration Rate 87 ML/MIN MDM Medical Decision Making Medical Screen Exam Complete: Yes Emergency Medical Condition: Yes Differential Diagnosis Left hand laceration, open fracture, flexor tendon injury Narrative Course Tetanus updated, patient provided pain medication as well as 2 g of Ancef. The patient ate a half a sub sandwich about an hour before the injury occurred. Shortly after the patient arrived to the emergency department the case was discussed with on-call hand surgeon Dr. Roldan who recommends keeping the patient NPO and plans for operative repair. He will try to place the patient on the OR schedule tonight. Recommends admission to the medical service. Case discussed with hospitalist Dr. Hart who will admit the patient to her service. Diagnosis Primary Impression: Laceration of left hand involving tendon Qualified Codes: S61.412A - Laceration without foreign body of left hand, initial encounter; S66.922A - Laceration of unspecified muscle, fascia and tendon at wrist and hand level, left hand, initial encounter Admitting Information Admitting Physician Requests: Observation Jason Mcfarlane MD Apr 25, 2017 18:04
[2017-04-25 18:28] VITALS: PULSE 69; RESP 19; O2SAT 99
[2017-04-25 18:37] LABS: AUTOMATED NEUTROPHIL # 7.4 TH/MM3 (1.8-7.7); BASOPHIL # 0.1 TH/MM3 (0-0.2); BASOPHIL % 0.6 % (0.0-2.0); EOSINOPHIL # 0.2 TH/MM3 (0-0.4); EOSINOPHIL % 1.7 % (0.0-4.0); HEMATOCRIT 39.4 % (39.0-51.0); HEMOGLOBIN 13.8 GM/DL (13.0-17.0); LYMPH % 19.3 % (9.0-44.0); MEAN CELL VOLUME 84.1 FL (80.0-100.0); MEAN CORPUSCULAR HEMOGLOBIN 29.5 PG (27.0-34.0); MEAN CORPUSCULAR HGB CONC 35.1 % (32.0-36.0); MEAN PLATELET VOLUME 7.6 FL (7.0-11.0); MONO % 7.7 % (0.0-8.0); MONOCYTE # 0.8 TH/MM3 (0-0.9); NEUT % 70.7 % (16.0-70.0); PLATELET COUNT 257 TH/MM3 (150-450); RED BLOOD COUNT 4.68 MIL/MM3 (4.50-5.90); RED CELL DISTRIBUTION WIDTH 13.4 % (11.6-17.2); WHITE BLOOD COUNT 10.5 TH/MM3 (4.0-11.0)
--- NOTE | 2017-04-25 18:46 | RADRPT ---
EXAM DATE/TIME: 04/25/2017 17:58 [facility] COMPARISON: No previous studies available for comparison. INDICATIONS : Cut left hand with saw today. MEDICAL HISTORY : None. SURGICAL HISTORY : None. ENCOUNTER: Initial ACUITY: 1 day PAIN SCORE: 5/10 LOCATION: Left medial side of hand MCPJ FINDINGS: Three view examination of the left hand demonstrates no dislocation, or fracture. The carpal bones appear intact. The interphalangeal and metacarpophalangeal joints are intact. Bony mineralization i s normal. CONCLUSION: 1. No acute bony abnormality. Soft tissue laceration adjacent to the fifth metacarpophalangeal joint. Jeanmarie Cruz MD on April 25, 2017 at 18:43 Board Certified Radiologist. This report was verified electronically.
[2017-04-25 18:52] LABS: ALT (GPT) 76 U/L (12-78)
[2017-04-25 18:54] LABS: ALKALINE PHOSPHATASE 80 U/L (45-117); TOTAL BILIRUBIN ADULT 0.2 MG/DL (0.2-1.0); TOTAL PROTEIN 7.3 GM/DL (6.4-8.2)
[2017-04-25 18:55] LABS: PROTHROMBIN TIME - PATIENT 10.2 SEC (9.8-11.6)
[2017-04-25 18:57] LABS: ALBUMIN 3.6 GM/DL (3.4-5.0); AST (GOT) 43 U/L (15-37); BICARBONATE 23.4 MEQ/L (21.0-32.0); BLOOD UREA NITROGEN 12 MG/DL (7-18); CALCIUM 8.7 MG/DL (8.5-10.1); CHLORIDE 108 MEQ/L (98-107); CREATININE 1.01 MG/DL (0.60-1.30); GLOMERULAR FILTRATION RATE 87 ML/MIN (>89); GLUCOSE,RANDOM 86 MG/DL (74-106); SODIUM (NA) 141 MEQ/L (136-145)
[2017-04-25] MEDS ORDERED: MAGNESIUM HYDROXIDE SUSP 30 ML CUP PO PRN (19:15)
[2017-04-25] MEDS ORDERED: LACTULOSE SYRUP 20 GM/30 ML CUP PO PRN (19:15)
[2017-04-25] MEDS ORDERED: SENNOSIDES 8.6 MG TAB PO PRN (19:15)
[2017-04-25] MEDS ORDERED: ACETAMINOPHEN 325 MG TAB PO PRN (19:15)
[2017-04-25] MEDS ORDERED: ONDANSETRON HCL 4 MG/2 ML VIAL IVP PRN (19:15)
[2017-04-25] MEDS ORDERED: NALOXONE HCL 0.4 MG/ML AMP IV PUSH PRN (19:15)
[2017-04-25] MEDS ORDERED: BISACODYL 10 MG SUPP RECTAL PRN (19:15)
[2017-04-25 19:22] VITALS: BP 125/95; PULSE 60; RESP 14; O2SAT 99
[2017-04-25] MEDS: SODIUM CHLOR 0.9% 1000 ML INJ 1,000 ML IV SCH (20:15)
[2017-04-25] MEDS: HYDROmorphone HCL PF 1 MG/ML VIAL IV PUSH PRN (20:25)
[2017-04-25 20:51] VITALS: BP 137/71; PULSE 64; RESP 18; TEMP 98.8; O2SAT 98
[2017-04-25] MEDS: SODIUM CHLORIDE 0.9% FLUSH 10 ML FLUSH IV FLUSH SCH (21:00)
[2017-04-25] MEDS: DOCUSATE SODIUM 50 MG/SENNA 8.6 MG TAB PO SCH (21:00)
[2017-04-25] MEDS ORDERED: IBUPROFEN 600 MG TAB PO PRN (21:00)
--- NOTE | 2017-04-25 21:08 | HHI.HP ---
[facility] Service [facility] Primary Care Physician No Primary Care Physician Admission Diagnosis left hand laceration with flexor tendon injury Diagnoses: Travel History International Travel<30 Days: No Contact w/Intl Traveler <30 Da: No Traveled to Known Affected Are: No History of Present Illness 31-year-old male with past medical history significant for IV drug abuse presents to the emergency department after sustaining an injury to his left hand. The patient reports he was cutting wood paneling with a circular saw and he propped one of the panels up with his hand. When he went to cut through the panel, he also sliced his hand with the saw. Patient reports his pain is well controlled with pain medication. He is unable to flex the fifth digit of his left hand. He is neurovascularly intact. Review of Systems Denies fever or chills Denies blurry vision, otorrhea, rhinorrhea Denies sore throat and cough No chest pain, palpitations, shortness of breath No abdominal pain Denies constipation/diarrhea/nausea/vomiting Denies muscle pain/weakness No rashes Past Family Social History Past Medical History None Past Surgical History Bilateral wrist repair at age 5 after falling through glass Reported Medications None Allergies: Coded Allergies: No Known Allergies (Unverified , 01/08/17) Family History No family history of CAD or DM Social History Smokes three quarters of pack of cigarettes daily for 18 years. Occasional alcohol. Positive marijuana. Uses IV methamphetamine intermittently with last use 3 days ago. Physical Exam Vital Signs Vital Signs Date Time Temp Pulse Resp B/P (MAP) Pulse Ox O2 Delivery O2 Flow Rate FiO2 04/25/17 20:51 98.8 64 18 137/71 (93) 98 04/25/17 20:17 04/25/17 19:23 60 14 99 Room Air 04/25/17 19:22 60 14 125/95 (105) 99 Room Air 04/25/17 18:28 69 19 99 04/25/17 17:50 98.4 71 18 125/95 (105) 99 Physical Exam GENERAL: male sitting up in bed SKIN: No rashes, ecchymoses or lesions. Cool and dry. No track white or areas of cellulitis noted. HEAD: Atraumatic. Normocephalic. No temporal or scalp tenderness. EYES: Pupils equal round and reactive. Extraocular motions intact. No scleral icterus. No injection or drainage. ENT: Nose without bleeding, purulent drainage or septal hematoma. Throat without erythema, tonsillar hypertrophy or exudate. Uvula midline. Airway patent. NECK: Trachea midline. No JVD or lymphadenopathy. Supple, nontender, no meningeal signs. CARDIOVASCULAR: Regular rate and rhythm without murmurs, gallops, or rubs. RESPIRATORY: Clear to auscultation. Breath sounds equal bilaterally. No wheezes , rales, or rhonchi. GASTROINTESTINAL: Abdomen soft, non-tender, nondistended. No hepato-splenomegaly , or palpable masses. No guarding. MUSCULOSKELETAL: Extremities without clubbing, cyanosis, or edema. No joint tenderness, effusion, or edema noted. No calf tenderness. Left hand dressed. Dressing is clean/dry/intact. Fingers neurovascularly intact. Able to extend but not flex fifth digit of the left hand. NEUROLOGICAL: Awake and alert. Cranial nerves II through XII intact. Motor and sensory grossly within normal limits. Normal speech. Laboratory Laboratory Tests Test 04/25/17 18:05 White Blood Count 10.5 Red Blood Count 4.68 Hemoglobin 13.8 Hematocrit 39.4 Mean Corpuscular Volume 84.1 Mean Corpuscular Hemoglobin 29.5 Mean Corpuscular Hemoglobin Concent 35.1 Red Cell Distribution Width 13.4 Platelet Count 257 Mean Platelet Volume 7.6 Neutrophils (%) (Auto) 70.7 Lymphocytes (%) (Auto) 19.3 Monocytes (%) (Auto) 7.7 Eosinophils (%) (Auto) 1.7 Basophils (%) (Auto) 0.6 Neutrophils # (Auto) 7.4 Lymphocytes # (Auto) 2.0 Monocytes # (Auto) 0.8 Eosinophils # (Auto) 0.2 Basophils # (Auto) 0.1 CBC Comment DIFF FINAL Differential Comment Prothrombin Time 10.2 Prothromb Time International Ratio 1.0 Activated Partial Thromboplast Time 26.8 Blood Urea Nitrogen 12 Creatinine 1.01 Random Glucose 86 Total Protein 7.3 Albumin 3.6 Calcium Level 8.7 Alkaline Phosphatase 80 Aspartate Amino Transf (AST/SGOT) 43 Alanine Aminotransferase (ALT/SGPT) 76 Total Bilirubin 0.2 Sodium Level 141 Potassium Level 3.8 Chloride Level 108 Carbon Dioxide Level 23.4 Anion Gap 10 Estimat Glomerular Filtration Rate 87 Result Diagram: 04/25/17180404/25/171804 Caprini VTE Risk Assessment Caprini VTE Risk Assessment: No/Low Risk (score <= 1) Caprini Risk Assessment Model Point Value = 1 Point Value = 2 Point Value = 3 Point Value = 5 Age 41-60 Minor surgery BMI > 25 kg/m2 Swollen legs Varicose veins or History of unexplained or recurrent spontaneous Oral contraceptives or hormone replacement Sepsis (< 1 month) Serious lung disease, including pneumonia (< 1 month) Abnormal pulmonary function Acute myocardial infarction Congestive heart failure (< 1 month) History of inflammatory bowel disease Medical patient at bed rest Age 61-74 Arthroscopic surgery Major open surgery (> 45 min) Laparoscopic surgery (> 45 min) Malignancy Confined to bed (> 72 hours) Immobilizing plaster cast Central venous access Age >= 75 History of VTE Family history of VTE Factor V Leiden Prothrombin [id number] Lupus anticoagulant Anticardiolipin antibodies Elevated serum homocysteine Heparin-induced thrombocytopenia Other congenital or acquired thrombophilia Stroke (< 1 month) Elective arthroplasty Hip, pelvis, or leg fracture Acute spinal cord injury (< 1 month) Prophylaxis Regimen Total Risk Factor Score Risk Level Prophylaxis Regimen 0-1 Low Early ambulation 2 Moderate Order ONE of the following: *Sequential Compression Device (SCD) *Heparin 5000 units SQ BID 3-4 Higher Order ONE of the following medications: *Heparin 5000 units SQ TID *Enoxaparin/Lovenox 40 mg SQ daily (WT < 150 kg, CrCl > 30 mL/min) *Enoxaparin/Lovenox 30 mg SQ daily (WT < 150 kg, CrCl > 10-29 mL/min) *Enoxaparin/Lovenox 30 mg SQ BID (WT < 150 kg, CrCl > 30 mL/min) AND/OR *Sequential Compression Device (SCD) 5 or more Highest Order ONE of the following medications: *Heparin 5000 units SQ TID (Preferred with Epidurals) *Enoxaparin/Lovenox 40 mg SQ daily (WT < 150 kg, CrCl > 30 mL/min) *Enoxaparin/Lovenox 30 mg SQ daily (WT < 150 kg, CrCl > 10-29 mL/min) *Enoxaparin/Lovenox 30 mg SQ BID (WT < 150 kg, CrCl > 30 mL/min) AND *Sequential Compression Device (SCD) Assessment and Plan Assessment and Plan Assessment/plan: 1. Flexor tendon injury of the left fifth digit Hand x-ray shows no acute bony abnormality with soft tissue laceration adjacent to the fifth metacarpophalangeal joint, images reviewed by me Hand surgery consulted, appreciate assistance Pain control with IV Dilaudid And by mouth IV fluids 2. IV drug abuse No track white or areas of cellulitis identified Cessation counseling provided 3. Tobacco abuse Cessation counseling provided FEN NPO NS at 100 cc/hr Electrolytes: Monitor and replete when necessary SCDs Case discussed with ER physician at length Charlotte Hart MD Apr 25, 2017 21:08
--- NOTE | 2017-04-25 21:09 | MB ---
cc: CANDI LUTZ DATE OF CONSULTATION 04/25/17 REASON FOR CONSULTATION Left hand laceration HISTORY The patient is a 31-year-old right-hand dominant male who presented to the ED with complaints of table saw injury to the left hand. The patient states he was working on a table saw when it jumped and accidentally lacerated the left hand. The patient complains of inability to flex the little finger. He also complains of numbness over the region. The patient complains of laceration involving the left palm. Denies any other injuries. His past medical and surgical history are noted non-significant. PHYSICAL EXAMINATION The patient is alert, oriented x3. Examination of left hand reveals a transverse laceration at the distal palmar crease along the ulnar aspect of the palm extending from the ulnar aspect of palm across the ulnar aspect of the hand onto the dorsal aspect of the hand. There is no flexor tone to the little finger. The laceration extends deep with exposed soft tissues. No active bleeding noted. He has intact capillary refill of the pulp of the little finger. The patient has decreased sensation along the ulnar aspect of the little finger. He has no active flexion of the PIP or the DIP joint of the little finger. He has intact extension of the fingers. He has intact flexion of the ring, middle and index fingers. He has intact flexion and extension of the thumb. IMAGING STUDIES X-rays of the left hand shows soft tissue defect. No evidence of bony injury or fracture. No radiopaque foreign body noted. ASSESSMENT A 31-year-old male with table saw laceration to the left palm with laceration of the flexor tendon and digital nerve. PLAN Take the patient emergently for exploration and repair of flexor tendon, possible repair of digital nerve left little finger/hand. The patient has been explained risks and benefits of the procedure. Candi Lutz MD SE/ /8:35 PM /8:58 PM ERNESTO
[2017-04-25] MEDS ORDERED: LACTATED RINGER'S 1000 ML IV PRN (21:45)
[2017-04-25] MEDS ORDERED: INSULIN HUMAN REGULAR 1,000 UNITS/10 ML VIAL SQ PRN (21:45)
[2017-04-25] MEDS ORDERED: METOPROLOL TARTRATE 25 MG TAB PO PRN (21:45)
[2017-04-25] MEDS ORDERED: SODIUM CHLORID 0.9% 500 ML IV PRN (21:45)
[2017-04-25] MEDS ORDERED: POVIDONE IODINE 5% (ANTISEPSIS KIT) 4 APPLICATIONS EACH NARE PRN (21:45)
[2017-04-25] MEDS ORDERED: CHLORHEXIDINE GLUCONATE 2 % 1 PACK (2 CLOTHS) TOPICAL PRN (21:45)
[2017-04-25 22:10] VITALS: PULSE 77
[2017-04-25] MEDS ORDERED: LIDOCAINE HCL 2% 50 ML VIAL ONE (22:21)
[2017-04-25] MEDS ORDERED: ceFAZolin INJ 1,000 MG VIAL IV ONE ×2 (23:19→23:20)
[2017-04-25] MEDS ORDERED: GENTAMICIN SULFATE 80 MG/2 ML VIAL IRRIGATION ONE ×2 (23:23→23:39)
[2017-04-26] MEDS ORDERED: *MEPERIDINE 25 MG INJ VIAL PERIprocedural Use ONLY ONE (00:42)
--- NOTE | 2017-04-26 00:42 | PD.OP ---
Operative Report Preoperative Diagnosis: (1) Laceration of left hand involving tendon Postoperative Diagnosis: (1) Laceration of hand, left, complicated (2) laceration flexor digitorum profundus zone II left little finger (3) laceration flexor digitorum superificialis zone II left little finger (4) laceration ulnar collateral ligament metacarpophalangeal joint left little finger (5) laceration ulnar digital nerve left little finger Procedure: exploration, wash, debridement Metacarpophalangeal joint left little finger repair flexor digitorum profundus zone II left little finger repair flexor digitorum superficialis zone II left little finger repair ulnar collateral ligament metacarpophalangeal joint left little finger repair ulnar digital nerve left little finger Anesthesia: general Surgeon: Jcarlos Roldan Steel Buffer(s): odilia Operation and Findings: transverse laceration measuring 5 cm along the ulnar aspect of the MP joint of the left little finger laceration ulnar collateral ligament ( avulsion from the base of the proximal phalanx) laceration of FDP and FDS zone II laceration ulnar digital nerve left little finger Jcarlos Roldan MD Apr 26, 2017 00:41
[2017-04-26] MEDS ORDERED: DO NOT ADM ANY ANTICOAGULANT DRUGS PRN (00:45)
[2017-04-26] MEDS: SODIUM CHLOR 0.9% 1000 ML INJ 1,000 ML IV SCH ×2 (01:00→15:13)
[2017-04-26] MEDS ORDERED: *HYDROmorphone PF 1 MG VIAL PERIprocedural Use ONLY ONE (01:22)
[2017-04-26] MEDS: HYDROmorphone HCL PF 1 MG/ML VIAL IV PUSH PRN ×2 (02:11→07:06)
[2017-04-26 02:18] VITALS: BP 132/76; PULSE 66; RESP 20; TEMP 96; O2SAT 98
--- NOTE | 2017-04-26 06:45 | MP ---
cc: JCARLOS LUTZ MD DATE OF SURGERY: 04/25/2017 PREOPERATIVE DIAGNOSIS Complicated laceration left hand. POSTOPERATIVE DIAGNOSIS 1. Complicated laceration left hand. 2. Laceration flexor digitorum profundus zone II, left little finger. 3. Laceration flexor digitorum superficialis zone II, left little finger. 4. Laceration ulnar collateral ligament metacarpal phalangeal joint, left little finger. 5. Laceration ulnar digital nerve, left little finger. PROCEDURE 1. Exploration, wash, debridement, metacarpal phalangeal joint, left little finger. 2. Repair flexor digitorum profundus zone II, left little finger. 3. Repair flexor digitorum superficialis zone II, left little finger. 4. Repair ulnar collateral ligament metacarpal phalangeal joint left little finger. 5. Repair ulnar digital nerve left little finger. SURGEON Dr. Lutz ANESTHESIA General ESTIMATED BLOOD LOSS Minimal TOURNIQUET TIME 63 minutes at 250 mmHg. The patient was recovered and sent to the Recovery Room in stable condition. INDICATIONS FOR PROCEDURE: The patient is a 31-year-old male who presented to the hospital with saw blade injury to the left hand. The patient complained of numbness and inability to flex the left little finger. On examination he had a transverse laceration measuring about 5 cm distal to the distal palmar crease extending from the junction of the ring and the little finger across the ulnar aspect of the palm onto the dorsal aspect. He had no flexor tone of the little finger. He had intact capillary refill. He had decreased sensation along the ulnar aspect of the little finger. The MP joint was also unstable on clinical examination. X-rays were negative for fracture or radiopaque foreign body. He was consented for exploration, repair of flexor tendon, possible digital nerve. The patient was explained the risks and benefits of the procedure. DESCRIPTION OF PROCEDURE: The patient was brought to the operating room under general anesthesia. The left upper extremity was thoroughly prepped and draped. The limb was examined using Esmarch tourniquet and tourniquet was raised to 250 mmHg. Intraoperative findings on exploration included a transverse laceration measuring about 5 cm extending just distal to the distal palmar crease from the junction of the ring and little finger across the ulnar aspect of the hand onto the dorsum. There was complete laceration of the flexor digitorum profundus and flexor digitorum superficialis in zone II. There was evidence of laceration of the ulnar collateral ligament of the MP joint with exposed MP joint with flake of bone from the ulnar aspect of the base of the proximal phalanx and there was complete laceration of the ulnar digital nerve and artery. Thorough wash of the wound was carried out. Excisional debridement of loose devitalized tissue was carried out. The joint was thoroughly washed and debrided. The proximal ends of the tendons were retracted proximally. Incision was extended across the proximal aspect of the palm, across the distal palmar crease in an exact fashion. Skin flaps were elevated. The A1 yolanda was released. The tendons were then identified and retracted into the laceration site and one was held in place by a 25 gauge needle. Distally the tendons were able to be delivered within the laceration site by flexing the finger joint. Thorough wash of the wound was carried out using normal saline mixed with irrigant. Attention was initially directed to the ulnar collateral ligament. This was approximated using interrupted 3-0 Ethibond stitch. Multiple stitches were applied bringing the collateral ligament into approximation. Attention was then directed to the flexor digitorum profundus. The tendon edges were debrided and the tendon edges were then approximated using 3-0 Ethibond in a cross cruciate fashion with four strands crossing the repair site. This was then reinforced by 5-0 Prolene in continuous circumferential fashion. Attention was then directed to the flexor digitorum superficialis. The tendon edges were debrided and was approximated using 3-0 Ethibond in a cross cruciate fashion with four strands crossing the repair site and this was then reinforced with 5-0 Prolene in a continuous circumferential fashion. The finger was put through a range of motion. The tendon repair site was holding in place. No evidence of catching was noted with range of motion of the little finger. Attention was then directed to the ulnar digital nerve. The nerve edges were trimmed using a sharp scalpel and the nerve edges were then approximated using 8-0 nylon in interrupted fashion. Thorough wash of the wound was carried out. Skin flaps were then approximated using 4-0 nylon in horizontal mattress fashion. Laceration site extending onto the dorsal aspect was approximated using 4-0 nylon in a horizontal mattress interrupted fashion. Prior to closure, tourniquet was deflated. Total tourniquet time was 63 minutes. The patient had good distal circulation. After the release of tourniquet, bleeding points were cauterized with bipolar cautery. Xeroform bacitracin dressing applied. About 8 cc of local anesthesia containing mixture of 2% lidocaine, 0.5% Marcaine was injected across the incision site. Bulky hand dressing was applied which was held in place by Sof-Rol and a dorsal block splint was applied extending to the fingertips keeping the wrist and fingers in flexion. The patient was recovered and sent to the Recovery Room in stable condition. The plan will be to discharge the patient home tomorrow on p.o. antibiotics and follow up in the office in [id number] days time for dressing and splint change. Jcarlos Lutz MD SE/MELVINA /12:42 AM /5:38 AM ERNESTO
[2017-04-26 07:01] LABS: AUTOMATED NEUTROPHIL # 6.3 TH/MM3 (1.8-7.7); BASOPHIL # 0.1 TH/MM3 (0-0.2); BASOPHIL % 0.8 % (0.0-2.0); EOSINOPHIL # 0.2 TH/MM3 (0-0.4); EOSINOPHIL % 1.9 % (0.0-4.0); HEMATOCRIT 37.8 % (39.0-51.0); HEMOGLOBIN 13.1 GM/DL (13.0-17.0); LYMPHOCYTE # 2.7 TH/MM3 (1.0-4.8); MEAN CELL VOLUME 84.3 FL (80.0-100.0); MEAN CORPUSCULAR HEMOGLOBIN 29.2 PG (27.0-34.0); MEAN CORPUSCULAR HGB CONC 34.6 % (32.0-36.0); MEAN PLATELET VOLUME 7.1 FL (7.0-11.0); MONO % 10.8 % (0.0-8.0); MONOCYTE # 1.1 TH/MM3 (0-0.9); NEUT % 60.5 % (16.0-70.0); PLATELET COUNT 229 TH/MM3 (150-450); RED BLOOD COUNT 4.49 MIL/MM3 (4.50-5.90); WHITE BLOOD COUNT 10.3 TH/MM3 (4.0-11.0)
[2017-04-26 07:24] LABS: BICARBONATE 26.6 MEQ/L (21.0-32.0); CALCIUM 8.1 MG/DL (8.5-10.1); CREATININE 0.94 MG/DL (0.60-1.30)
[2017-04-26 08:00] VITALS: BP 114/55; PULSE 55; RESP 17; TEMP 96.8; O2SAT 98
[2017-04-26] MEDS: SODIUM CHLORIDE 0.9% FLUSH 10 ML FLUSH IV FLUSH SCH (09:00)
[2017-04-26] MEDS: DOCUSATE SODIUM 50 MG/SENNA 8.6 MG TAB PO SCH (09:00)
--- NOTE | 2017-04-26 10:54 | HHI.PR ---
Subjective Remarks Follow-up complicated laceration left hand 04/26/17-patient seen and examined, no acute event overnight. Denies any significant left hand pain. Case was discussed with hand surgeon this morning. Objective Vitals Vital Signs Date Time Temp Pulse Resp B/P (MAP) Pulse Ox O2 Delivery O2 Flow Rate FiO2 04/26/17 09:24 18 04/26/17 08:00 96.8 55 17 114/55 (74) 98 04/26/17 02:18 96.0 66 20 132/76 (94) 98 04/26/17 01:30 97.8 64 16 128/72 (90) 94 Room Air 04/26/17 01:15 67 18 133/76 (95) 94 Room Air 04/26/17 01:00 97.7 62 19 140/83 (102) 100 Room Air 04/26/17 00:45 77 19 134/89 (104) 99 Nasal Cannula 2 04/26/17 00:38 68 16 135/80 (98) 100 Nasal Cannula 3 04/25/17 22:10 97.5 77 14 134/76 (95) 98 04/25/17 22:10 77 04/25/17 20:51 98.8 64 18 137/71 (93) 98 04/25/17 20:17 04/25/17 19:23 60 14 99 Room Air 04/25/17 19:22 60 14 125/95 (105) 99 Room Air 04/25/17 18:28 69 19 99 04/25/17 17:50 98.4 71 18 125/95 (105) 99 I/O 04/25/17 04/25/17 04/25/17 04/26/17 04/26/17 04/26/17 07:00 15:00 23:00 07:00 15:00 23:00 Intake Total 3472 ml Output Total 10 ml Balance 3462 ml Intake Oral 720 ml IV Total 2752 ml Output Urine Total 0 ml Estimated Blood Loss 10 ml # Voids 2 # Bowel Movements 0 Result Diagram: 04/26/17 0648 04/26/17 0648 Imaging Last Impressions Hand X-Ray 04/25/17 0000 Signed Impressions: Service Date/Time: Tuesday, April 25, 2017 17:58 - CONCLUSION: 1. No acute bony abnormality. Soft tissue laceration adjacent to the fifth metacarpophalangeal joint. Jeanmarie Cruz MD Objective Remarks GENERAL: NAD SKIN: Warm and dry. HEAD: Normocephalic. EYES: No scleral icterus. No injection or drainage. NECK: Supple, trachea midline. No JVD or lymphadenopathy. CARDIOVASCULAR: Regular rate and rhythm without murmurs, gallops, or rubs. RESPIRATORY: Breath sounds equal bilaterally. No accessory muscle use. GASTROINTESTINAL: Abdomen soft, non-tender, nondistended. MUSCULOSKELETAL: No cyanosis, or edema. dressing over left hand; splint in place BACK: Nontender without obvious deformity. No CVA tenderness. Procedures 1. Exploration, wash, debridement, metacarpal phalangeal joint, left little finger. 2. Repair flexor digitorum profundus zone II, left little finger. 3. Repair flexor digitorum superficialis zone II, left little finger. 4. Repair ulnar collateral ligament metacarpal phalangeal joint left little finger. 5. Repair ulnar digital nerve left little fingers. A/P Problem List: (1) laceration ulnar collateral ligament metacarpophalangeal joint left little finger (2) laceration flexor digitorum superificialis zone II left little finger (3) laceration ulnar digital nerve left little finger (4) laceration flexor digitorum profundus zone II left little finger (5) Laceration of hand, left, complicated ICD Code: S61.412A - Laceration without foreign body of left hand, initial encounter Assessment and Plan 31-year-old man with Laceration of flexor flexor digitorum superficialis, Ulnar digital nerve left little finger Appreciate input from hand surgery, patient is status post 1. Exploration, wash, debridement, metacarpal phalangeal joint, left little finger. 2. Repair flexor digitorum profundus zone II, left little finger. 3. Repair flexor digitorum superficialis zone II, left little finger. 4. Repair ulnar collateral ligament metacarpal phalangeal joint left little finger. 5. Repair ulnar digital nerve left little fingers. Pain management accordingly, will discharge home on by mouth antibiotics Discharge Planning Discharge patient to home Condition on discharge: Improved Regular Diet as tolerated Ad Erica activity Rx written:see EMR Follow-up with primary care physician in 1 week Follow up with Hand surgery in 2-4 business days Andrae Barton MD Apr 26, 2017 10:54
[2017-04-26] MEDS ORDERED: HYDR-3516 PO (10:56)
[2017-04-26] MEDS ORDERED: BACT800T5 PO ×2 (10:56→16:52)
[2017-04-26] MEDS: ACETAMINOPHEN/HYDROcodone 325 MG/5 MG TAB PO PRN ×2 (11:23→14:58)
[2017-04-26 12:00] VITALS: BP 129/67; PULSE 58; RESP 18; TEMP 97.5; O2SAT 98
[2017-04-26 16:00] VITALS: BP 130/78; PULSE 53; RESP 17; TEMP 97.8; O2SAT 98
[2017-04-26 16:51] VITALS: RESP 18
== END 2017-04-26 17:59 | disposition home or self-care (01) ==
LOC: NEPD 17:43 → NEDA 19:12 → NEPGCP 20:07 → N07B 23:00
PROVIDERS: ADMIT Hospitalist; ATTEND Hospitalist
DX: S66.127A Laceration of flexor muscle, fascia and tendon of left little finger at wrist and hand level, initial encounter (principal); S53.32XA Traumatic rupture of left ulnar collateral ligament, initial encounter; S64.02XA Injury of ulnar nerve at wrist and hand level of left arm, initial encounter; F19.10 Other psychoactive substance abuse, uncomplicated; W31.2XXA Contact with powered woodworking and forming machines, initial encounter; Y93.89 Activity, other specified; I10 Essential (primary) hypertension; F17.210 Nicotine dependence, cigarettes, uncomplicated
CPT/HCPCS: 73130; 80048; 80053; 85025; 85610; 85730; 96361; 96365; 96375; 96376; G0378; J0690; J1170; J1580; J2175; J3010; J7030; J7120

== ENCOUNTER 2017-04-29 22:15 | Inpatient (IN) | payer SELFPAY ==
[~2017-04-29 22:15] MED LIST changes: +BACT800T5 PO; -CLIN300C5 PO; +HYDR-3516 PO; -LIDOCAINE HCL 1% PF 5 ML SYRINGE OTHER ONE; -PROPOFOL 200 MG/20 ML AMP IV ONE; -ceFAZolin INJ 1,000 MG VIAL IV ONE; -ePHEDrine/NS 25 MG/5 ML SYRINGE IV ONE
[2017-04-29 22:17] VITALS: BP 125/59; PULSE 77; RESP 16; TEMP 96.7; O2SAT 98
--- NOTE | 2017-04-29 22:41 | PD ---
HPI Chief Complaint: Musculoskeletal Complaint Time Seen by Provider: 22:26 Travel History International Travel<30 days: No Contact w/Intl Traveler<30days: No Traveled to known affect area: No History of Present Illness HPI Patient is a 31-year-old male who is postop day 4 from an exploration of the wound from a table saw and repair of flexor digitorum profundus and superficialis of the left little finger as well as repair of the ulnar collateral ligament the metacarpophalangeal joint on the left presents the emergency department for evaluation after a fall. Patient states he followed up with his surgeon Dr. Antonio and then had a slip and fall. He did break his splint when he fell and felt a pop and now is unable to flex left little finger. Patient denies any other injuries denies any head injury neck injury back injury stomach pain chest pain. PFSH Past Medical History Hx Anticoagulant Therapy: No Asthma: No Blood Disorders: No Heart Rhythm Problems: No Cancer: Yes Cardiovascular Problems: Yes High Cholesterol: No Chemotherapy: No Chest Pain: No Congestive Heart Failure: No COPD: No Cerebrovascular Accident: No Diabetes: No Diminished Hearing: No Endocrine: No Gastrointestinal Disorders: Yes GERD: Yes Genitourinary: No Hypertension: Yes Immune Disorder: No Implanted Vascular Access Dvce: No Musculoskeletal: No Neurologic: No Psychiatric: No Reproductive: No Respiratory: Yes (LATENT TUBERCULOSIS) Immunizations Current: Yes Radiation Therapy: No Sleep Apnea: No Thyroid Disease: No Influenza Vaccination: No Past Surgical History Other Surgery: Yes (right arm; left arm; right hand ) Social History Alcohol Use: Yes (OCC ) Tobacco Use: Yes Substance Use: Yes (IV METH LAST USE 3 DAYS AGO , IV DILAUDID . MARIJUANA LAST USE TODAY ) Allergies-Medications (Allergen,Severity, Reaction): Coded Allergies: No Known Allergies (Unverified , 01/08/17) Reported Meds & Prescriptions Reported Meds & Active Scripts Active Bactrim DS (Sulfamethoxazole-Trimethoprim) 800-160 Mg Tab 1 Tab PO BID Hydrocodone-Acetamin 5-325 mg (Hydrocodone/Acetaminophen) 5 Mg-325 Mg Tablet 1 Tab PO Q4H PRN Review of Systems Except as stated in HPI: all other systems reviewed are Neg Physical Exam Narrative GENERAL: Well-nourished, well-developed patient. SKIN: Focused skin assessment warm/dry. HEAD: Normocephalic. EYES: No scleral icterus. No injection or drainage. NECK: Supple, trachea midline. No JVD or lymphadenopathy. CARDIOVASCULAR: Regular rate and rhythm without murmurs, gallops, or rubs. RESPIRATORY: Breath sounds equal bilaterally. No accessory muscle use. GASTROINTESTINAL: Abdomen soft, non-tender, nondistended. MUSCULOSKELETAL: No cyanosis, or edema. Patient has a healed laceration to the palm distal to the hypothenar eminence. Patient is unable to flex at the PIP DIP and MCP joints of the left little finger. All other range of motion is intact of the fingers wrists and elbow. No bony tenderness is appreciated. The laceration is clean dry and intact stitches in place. No bleeding. BACK: Nontender without obvious deformity. No CVA tenderness. Data Data Last Documented VS Vital Signs Date Time Temp Pulse Resp B/P (MAP) Pulse Ox O2 Delivery O2 Flow Rate FiO2 04/29/17 22:17 96.7 77 16 125/59 (81) 98 Room Air Orders Orders Hand, Complete ([id number]) (04/29/17 22:48) Basic Metabolic Panel (Bmp) (04/29/17 23:23) Complete Blood Count With Diff (04/29/17 23:23) Iv Access Insert/Monitor (04/29/17 23:23) Ecg Monitoring (04/29/17 23:23) Oximetry (04/29/17 23:23) Sodium Chloride 0.9% Flush (Ns Flush) (04/29/17 23:30) Admit Order (Ed Use Only) (04/30/17 ) Consult Hand Surgery (04/30/17 ) Labs Laboratory Tests Test 04/29/17 23:58 White Blood Count 8.8 TH/MM3 Red Blood Count 4.95 MIL/MM3 Hemoglobin 14.5 GM/DL Hematocrit 41.7 % Mean Corpuscular Volume 84.4 FL Mean Corpuscular Hemoglobin 29.4 PG Mean Corpuscular Hemoglobin Concent 34.8 % Red Cell Distribution Width 13.0 % Platelet Count 282 TH/MM3 Mean Platelet Volume 7.2 FL Neutrophils (%) (Auto) 52.4 % Lymphocytes (%) (Auto) 30.1 % Monocytes (%) (Auto) 12.7 % Eosinophils (%) (Auto) 4.1 % Basophils (%) (Auto) 0.7 % Neutrophils # (Auto) 4.6 TH/MM3 Lymphocytes # (Auto) 2.6 TH/MM3 Monocytes # (Auto) 1.1 TH/MM3 Eosinophils # (Auto) 0.4 TH/MM3 Basophils # (Auto) 0.1 TH/MM3 CBC Comment DIFF FINAL Differential Comment Blood Urea Nitrogen 13 MG/DL Creatinine 0.94 MG/DL Random Glucose 96 MG/DL Calcium Level 8.9 MG/DL Sodium Level 141 MEQ/L Potassium Level 3.7 MEQ/L Chloride Level 105 MEQ/L Carbon Dioxide Level 30.2 MEQ/L Anion Gap 6 MEQ/L Estimat Glomerular Filtration Rate 94 ML/MIN MDM Medical Decision Making Medical Screen Exam Complete: Yes Emergency Medical Condition: Yes Differential Diagnosis Fall, wrist fracture, tendon injury Narrative Course Patient roomed emergency department, unable to flex his left small finger, discussed with Dr. Megan jansen to did his prior repair and would like the patient admitted for operative intervention. Discussed with Dr. Hart who will admit. Pain in control, wrist x-ray negative. Last 24 hours Impressions Hand X-Ray 04/29/17 6022 Signed Impressions: Service Date/Time: Saturday, April 29, 2017 22:52 - CONCLUSION: The osseous structures and are grossly intact. Mnior Mckeon MD Diagnosis Primary Impression: laceration flexor digitorum superificialis zone II left little finger Additional Impressions: laceration flexor digitorum profundus zone II left little finger laceration ulnar digital nerve left little finger Laceration of hand, left, complicated Admitting Information Admitting Physician Requests: Admit Condition: Stable Shiv Brennan MD Apr 29, 2017 22:40
--- NOTE | 2017-04-29 23:03 | RADRPT ---
EXAM DATE/TIME: 04/29/2017 22:52 [facility] COMPARISON: HAND LEFT COMPLETE ([id number]), April 25, 2017, 17:58. INDICATIONS : Left hand pain. Patient states he cut his hand last week with a electric saw and has had pain since s urgery. MEDICAL HISTORY : None. SURGICAL HISTORY : None. ENCOUNTER: Initial ACUITY: 4 - 6 days PAIN SCORE: 8/10 LOCATION: Left hand. FINDINGS: Three view examination of the left hand in fiberglass splint demonstrates no soft tissue swelling, di slocation, or fracture. The carpal bones appear intact. The interphalangeal and metacarpophalangea l joints are intact. Bony mineralization is normal. CONCLUSION: The osseous structures and are grossly intact. Minor Mckeon MD on April 29, 2017 at 23:01 Board Certified Radiologist. This report was verified electronically.
[2017-04-29] MEDS ORDERED: SODIUM CHLORIDE 0.9% FLUSH 10 ML FLUSH IV FLUSH PRN (23:30)
[2017-04-30 00:04] LABS: AUTOMATED NEUTROPHIL # 4.6 TH/MM3 (1.8-7.7); BASOPHIL # 0.1 TH/MM3 (0-0.2); BASOPHIL % 0.7 % (0.0-2.0); EOSINOPHIL # 0.4 TH/MM3 (0-0.4); EOSINOPHIL % 4.1 % (0.0-4.0); HEMATOCRIT 41.7 % (39.0-51.0); HEMO FLAGS DIFF FINAL; LYMPH % 30.1 % (9.0-44.0); LYMPHOCYTE # 2.6 TH/MM3 (1.0-4.8); MEAN CELL VOLUME 84.4 FL (80.0-100.0); MEAN CORPUSCULAR HEMOGLOBIN 29.4 PG (27.0-34.0); MEAN CORPUSCULAR HGB CONC 34.8 % (32.0-36.0); MONO % 12.7 % (0.0-8.0); NEUT % 52.4 % (16.0-70.0); PLATELET COUNT 282 TH/MM3 (150-450); RED BLOOD COUNT 4.95 MIL/MM3 (4.50-5.90); WHITE BLOOD COUNT 8.8 TH/MM3 (4.0-11.0)
[2017-04-30] MEDS: SODIUM CHLOR 0.9% 1000 ML INJ 1,000 ML IV SCH ×2 (00:17→13:37)
[2017-04-30 00:24] LABS: BICARBONATE 30.2 MEQ/L (21.0-32.0); POTASSIUM 3.7 MEQ/L (3.5-5.1)
[2017-04-30] MEDS ORDERED: BISACODYL 10 MG SUPP RECTAL PRN (00:30)
[2017-04-30] MEDS ORDERED: MAGNESIUM HYDROXIDE SUSP 30 ML CUP PO PRN (00:30)
[2017-04-30] MEDS ORDERED: SENNOSIDES 8.6 MG TAB PO PRN (00:30)
[2017-04-30] MEDS ORDERED: NALOXONE HCL 0.4 MG/ML AMP IV PUSH PRN (00:30)
[2017-04-30] MEDS ORDERED: SODIUM CHLORIDE 0.9% FLUSH 10 ML FLUSH IV FLUSH PRN (00:30)
[2017-04-30] MEDS ORDERED: ONDANSETRON HCL 4 MG/2 ML VIAL IVP PRN (00:30)
[2017-04-30] MEDS ORDERED: LACTULOSE SYRUP 20 GM/30 ML CUP PO PRN (00:30)
[2017-04-30] MEDS ORDERED: ACETAMINOPHEN 325 MG TAB PO PRN (00:30)
--- NOTE | 2017-04-30 00:37 | HHI.HP ---
[facility] No Primary Care Physician Admission Diagnosis Tendon Laceration Diagnoses: Travel History International Travel<30 Days: No Contact w/Intl Traveler <30 Da: No Traveled to Known Affected Are: No History of Present Illness 31-year-old male with a past medical history significant for IV drug abuse and laceration of the left hand involving the tendons status post repair on 04/26 presents to the emergency department after he reinjured his left hand. The patient reports that he was carrying something in his right hand when he started to pitch forward and braced himself against the wall with his left hand. He reports that he flexed his hand backwards against the wall, breaking his splint. He felt a pop and is now unable to flex the fifth digit of his left hand. Hand x-ray negative for fracture. Review of Systems Denies fever or chills Denies blurry vision, otorrhea, rhinorrhea Denies sore throat and cough No chest pain, palpitations, shortness of breath No abdominal pain Denies constipation/diarrhea/nausea/vomiting Denies muscle pain/weakness No rashes Past Family Social History Past Medical History None Past Surgical History Bilateral renal wrist repair at age 5 after falling through a glass Status post repair flexor digitorum profundus, flexor digitorum superficialis and ulnar lateral ligament metacarpal phalangeal joint of the left fifth digit on 04/25/17 status post laceration with a circular saw Reported Medications None Allergies: Coded Allergies: No Known Allergies (Unverified , 01/08/17) Family History No family history of CAD/DM Social History Smokes three quarters of pack of cigarettes daily for 18 years. Occasional alcohol. Positive marijuana. Uses IV methamphetamine intermittently. Physical Exam Vital Signs Vital Signs Date Time Temp Pulse Resp B/P (MAP) Pulse Ox O2 Delivery O2 Flow Rate FiO2 04/29/17 22:17 96.7 77 16 125/59 (81) 98 Room Air Physical Exam GENERAL: male sitting up in bed SKIN: No rashes, ecchymoses or lesions. Cool and dry. No track white or areas of cellulitis noted. HEAD: Atraumatic. Normocephalic. No temporal or scalp tenderness. EYES: Pupils equal round and reactive. Extraocular motions intact. No scleral icterus. No injection or drainage. ENT: Nose without bleeding, purulent drainage or septal hematoma. Throat without erythema, tonsillar hypertrophy or exudate. Uvula midline. Airway patent. NECK: Trachea midline. No JVD or lymphadenopathy. Supple, nontender, no meningeal signs. CARDIOVASCULAR: Regular rate and rhythm without murmurs, gallops, or rubs. RESPIRATORY: Clear to auscultation. Breath sounds equal bilaterally. No wheezes , rales, or rhonchi. GASTROINTESTINAL: Abdomen soft, non-tender, nondistended. No hepato-splenomegaly , or palpable masses. No guarding. MUSCULOSKELETAL: Extremities without clubbing, cyanosis, or edema. No joint tenderness, effusion, or edema noted. No calf tenderness. Left hand dressed. Dressing is clean/dry/intact. Fingers neurovascularly intact. Unable to flex/ extend 5th digit left. NEUROLOGICAL: Awake and alert. Cranial nerves II through XII intact. Motor and sensory grossly within normal limits. Normal speech. Laboratory Laboratory Tests Test 04/29/17 23:58 White Blood Count 8.8 Red Blood Count 4.95 Hemoglobin 14.5 Hematocrit 41.7 Mean Corpuscular Volume 84.4 Mean Corpuscular Hemoglobin 29.4 Mean Corpuscular Hemoglobin Concent 34.8 Red Cell Distribution Width 13.0 Platelet Count 282 Mean Platelet Volume 7.2 Neutrophils (%) (Auto) 52.4 Lymphocytes (%) (Auto) 30.1 Monocytes (%) (Auto) 12.7 Eosinophils (%) (Auto) 4.1 Basophils (%) (Auto) 0.7 Neutrophils # (Auto) 4.6 Lymphocytes # (Auto) 2.6 Monocytes # (Auto) 1.1 Eosinophils # (Auto) 0.4 Basophils # (Auto) 0.1 CBC Comment DIFF FINAL Differential Comment Result Diagram: 04/29/17 1049 Caprini VTE Risk Assessment Caprini VTE Risk Assessment: No/Low Risk (score <= 1) Caprini Risk Assessment Model Point Value = 1 Point Value = 2 Point Value = 3 Point Value = 5 Age 41-60 Minor surgery BMI > 25 kg/m2 Swollen legs Varicose veins or History of unexplained or recurrent spontaneous Oral contraceptives or hormone replacement Sepsis (< 1 month) Serious lung disease, including pneumonia (< 1 month) Abnormal pulmonary function Acute myocardial infarction Congestive heart failure (< 1 month) History of inflammatory bowel disease Medical patient at bed rest Age 61-74 Arthroscopic surgery Major open surgery (> 45 min) Laparoscopic surgery (> 45 min) Malignancy Confined to bed (> 72 hours) Immobilizing plaster cast Central venous access Age >= 75 History of VTE Family history of VTE Factor V Leiden Prothrombin [id number] Lupus anticoagulant Anticardiolipin antibodies Elevated serum homocysteine Heparin-induced thrombocytopenia Other congenital or acquired thrombophilia Stroke (< 1 month) Elective arthroplasty Hip, pelvis, or leg fracture Acute spinal cord injury (< 1 month) Prophylaxis Regimen Total Risk Factor Score Risk Level Prophylaxis Regimen 0-1 Low Early ambulation 2 Moderate Order ONE of the following: *Sequential Compression Device (SCD) *Heparin 5000 units SQ BID 3-4 Higher Order ONE of the following medications: *Heparin 5000 units SQ TID *Enoxaparin/Lovenox 40 mg SQ daily (WT < 150 kg, CrCl > 30 mL/min) *Enoxaparin/Lovenox 30 mg SQ daily (WT < 150 kg, CrCl > 10-29 mL/min) *Enoxaparin/Lovenox 30 mg SQ BID (WT < 150 kg, CrCl > 30 mL/min) AND/OR *Sequential Compression Device (SCD) 5 or more Highest Order ONE of the following medications: *Heparin 5000 units SQ TID (Preferred with Epidurals) *Enoxaparin/Lovenox 40 mg SQ daily (WT < 150 kg, CrCl > 30 mL/min) *Enoxaparin/Lovenox 30 mg SQ daily (WT < 150 kg, CrCl > 10-29 mL/min) *Enoxaparin/Lovenox 30 mg SQ BID (WT < 150 kg, CrCl > 30 mL/min) AND *Sequential Compression Device (SCD) Assessment and Plan Assessment and Plan Assessment/Plan: 1. Reinjury of the tendons of the left fifth digit Hand surgery consulted, plan is for operative repair tomorrow morning Hand xray without fracture, images reviewed by me NPO 2. IV drug abuse No track white or areas of cellulitis identified Cessation counseling provided 3. Tobacco abuse Cessation counseling provided FEN NPO NS at 75 cc/hr Electrolytes: Monitor and replete when necessary SCDs Case discussed with ER physician Physician Certification 2 Midnight Certification Type: Admission for Inpatient Services Order for Inpatient Services The services are ordered in accordance with Medicare regulations or non- Medicare payer requirements, as applicable. In the case of services not specified as inpatient-only, they are appropriately provided as inpatient services in accordance with the 2-midnight benchmark. Estimated LOS (days): 2 2 days is the estimated time the patient will need to remain in the hospital, assuming treatment plan goals are met and no additional complications. Post-Hospital Plan: Home Charlotte Hart MD Apr 30, 2017 00:36
[2017-04-30 02:32] VITALS: BP 120/65; PULSE 81; RESP 16; TEMP 98; O2SAT 97
[2017-04-30 05:17] LABS: AUTOMATED NEUTROPHIL # 4.5 TH/MM3 (1.8-7.7); BASOPHIL # 0.1 TH/MM3 (0-0.2); BASOPHIL % 0.9 % (0.0-2.0); EOSINOPHIL # 0.4 TH/MM3 (0-0.4); EOSINOPHIL % 4.5 % (0.0-4.0); HEMATOCRIT 41.6 % (39.0-51.0); HEMO FLAGS DIFF FINAL; LYMPHOCYTE # 2.7 TH/MM3 (1.0-4.8); MEAN CELL VOLUME 84.9 FL (80.0-100.0); MEAN CORPUSCULAR HEMOGLOBIN 29.4 PG (27.0-34.0); MEAN CORPUSCULAR HGB CONC 34.6 % (32.0-36.0); MONO % 13.5 % (0.0-8.0); NEUT % 51.1 % (16.0-70.0); PLATELET COUNT 286 TH/MM3 (150-450); RED CELL DISTRIBUTION WIDTH 13.2 % (11.6-17.2); WHITE BLOOD COUNT 8.8 TH/MM3 (4.0-11.0)
[2017-04-30 05:45] LABS: BICARBONATE 26.8 MEQ/L (21.0-32.0); POTASSIUM 4.1 MEQ/L (3.5-5.1)
[2017-04-30 08:00] VITALS: BP 120/56; PULSE 59; RESP 18; TEMP 97.5; O2SAT 96
[2017-04-30] MEDS: SODIUM CHLORIDE 0.9% FLUSH 10 ML FLUSH IV FLUSH SCH ×2 (09:00→21:29)
[2017-04-30] MEDS: DOCUSATE SODIUM 50 MG/SENNA 8.6 MG TAB PO SCH ×2 (09:00→21:00)
[2017-04-30 12:20] VITALS: BP 121/71; PULSE 88; RESP 18; TEMP 98.1; O2SAT 97
[2017-04-30] MEDS ORDERED: LIDOCAINE HCL 2% 50 ML VIAL ONE (13:57)
[2017-04-30] MEDS ORDERED: BACITRACIN TOP OINT 15 GM TUBE ONE (13:58)
[2017-04-30] MEDS ORDERED: BUPIVACAINE HCL PF 0.5% 30 ML VIAL ONE (13:58)
[2017-04-30] MEDS ORDERED: NEOMYCIN/POLYMYXIN 1 ML G.U. IRRIGANT ONE (14:03)
[2017-04-30] MEDS ORDERED: ceFAZolin INJ 1,000 MG VIAL IV ONE (15:06)
[2017-04-30] MEDS ORDERED: DO NOT ADM ANY ANTICOAGULANT DRUGS PRN (16:35)
--- NOTE | 2017-04-30 16:41 | PD.OP ---
Operative Report Preoperative Diagnosis: (1) laceration flexor digitorum profundus zone II left little finger (2) laceration flexor digitorum superificialis zone II left little finger Postoperative Diagnosis: (1) laceration flexor digitorum profundus zone II left little finger (2) laceration flexor digitorum superificialis zone II left little finger Procedure: reexploration and repair flexor digitorum profundus and flexor digitorum superficialis zone II left little finger Anesthesia: general Surgeon: Jcarlos Roldan Therapeutic Radiologist(s): odilia Operation and Findings: rupture of the previously repaired FDP and FDS zone II left little finger Jcarlos Roldan MD Apr 30, 2017 16:41
[2017-04-30] MEDS ORDERED: *morphine SULFATE 8 MG/ML PERIprocedure ONLY ONE (16:55)
[2017-04-30 18:12] VITALS: BP 134/68; PULSE 63; RESP 17; TEMP 97.2; O2SAT 100
[2017-04-30 20:00] VITALS: BP 133/64; PULSE 75; RESP 22; TEMP 98.6; O2SAT 96
[2017-04-30] MEDS ORDERED: ACETAMINOPHEN/HYDROcodone 325 MG/5 MG TAB PO PRN (20:45)
[2017-04-30] MEDS: MORPHINE SULFATE 4 MG/ML INJ IV PUSH PRN (21:27)
[2017-05-01] VITALS: BP 117/56; PULSE 75; RESP 20; TEMP 96.8; O2SAT 95
[2017-05-01] MEDS: MORPHINE SULFATE 4 MG/ML INJ IV PUSH PRN ×2 (00:46→08:52)
[2017-05-01] MEDS: SODIUM CHLOR 0.9% 1000 ML INJ 1,000 ML IV SCH ×2 (02:57→08:55)
[2017-05-01 04:00] VITALS: BP 119/60; PULSE 74; RESP 20; TEMP 98.2; O2SAT 93
--- NOTE | 2017-05-01 07:18 | MP ---
cc: JCARLOS LUTZ MD DATE OF SURGERY 04/30/2017 PREOPERATIVE DIAGNOSIS Pre-rupture flexor digitorum profundus and flexor digitorum superficialis zone 2 left little finger. POSTOPERATIVE DIAGNOSIS Rupture flexor digitorum profundus and flexor digitorum superficialis zone 2 left little finger. PROCEDURE Exploration and re-exploration, repair flexor digitorum profundus and flexor digitorum superficialis zone [address] finger. SURGEON Dr. Lutz ANESTHESIA General ESTIMATED BLOOD LOSS Minimal TOURNIQUET TIME 59 minutes at 250 mmHg. DISPOSITION The patient was recovered and sent to the Recovery Room in stable condition. INDICATIONS The patient is a 31-year-old male who initially presented with a circular saw blade injury to the left hand. The patient underwent emergent exploration and was found to have a laceration of the flexor digitorum profundus, flexor digitorum superficialis, ulnar digital nerve and ulnar collateral ligament of the left little finger MP joint. The patient underwent exploration and repair of the flexor tendons, ulnar digital nerve, and collateral ligament and he presented with fall and reinjuring the left hand. On examination, the patient had a splint applied by a hand saw and he had no flexor tone to the left little finger. The patient had no active flexion of the left little finger. He was consented for exploration and repair of the flexor tendons, possible repair of the digital nerve. The patient was explained the risks and benefits of the procedure. PROCEDURE NOTE The patient was brought to the operating room. Under general anesthesia, the left upper extremity was thoroughly prepped and draped and the previously placed sutures were removed. The limb was exsanguinated with an Esmarch tourniquet. Tourniquet was then inflated to 250 mmHg. Skin flaps were elevated exposing the laceration site. There was complete rupture of the previously repaired flexor digitorum profundus and flexor digitorum superficialis as it had pulled out from the proximal stump. The ulnar digital nerve repair site was intact. Granulation tissue was noted in the region. This was debrided. The tendon edges were freshened. I was able to obtain and tag the proximal stump within the laceration site through the laceration site. The tendons were then held in place with hypodermic needles. Using 3-0 Supramid looped stitch, a Sturge repair was carried out with four strands crossing the laceration site. Initially, the flexor digitorum profundus was repaired. The finger was put through a passive range of motion. No evidence of gaping of the repair site or catching of the repair site over the A2 yolanda region was noted. Attention was then directed to the flexor digitorum superficialis. The tendon edges were freshened. The tendons were reapproximated using 4-0 with Ethibond in a cross cruciate fashion. Epitendinous sutures were then applied in a field method using 5-0 Prolene. The little finger was put through a range of motion. The repair site was holding well and there was no catching of the finger on full extension. Thorough wash of the wound was carried out. Skin was approximated using 4-0 nylon in a horizontal mattress interrupted fashion. Xeroform bacitracin dressing applied. A bulky hand dressing was applied which was held in place by Jennifer-Jose and a dorsal block splint was applied keeping the wrist in flexion and fingers in flexion. He had good distal circulation after release of tourniquet which was at 59 minutes. The patient was sent to the Recovery Room in stable condition. The patient can be discharged today on p.o. antibiotics and pain medication. I will see him in the office in [id number] days' time. Jcarlos Lutz MD SE/JIMBO /4:42 PM /6:47 AM
[2017-05-01 08:00] VITALS: BP 126/65; PULSE 57; RESP 17; TEMP 97; O2SAT 96
[2017-05-01] MEDS: SODIUM CHLORIDE 0.9% FLUSH 10 ML FLUSH IV FLUSH SCH (08:52)
[2017-05-01] MEDS: DOCUSATE SODIUM 50 MG/SENNA 8.6 MG TAB PO SCH (08:53)
--- NOTE | 2017-05-01 10:21 | HHI.PR ---
Subjective Remarks Follow up rupture of the previously repaired FDP and FDS zone II left little finger 05/01/17-patient seen and examined, no acute event overnight, afebrile. Pain controlled to left hand Objective Vitals Vital Signs Date Time Temp Pulse Resp B/P (MAP) Pulse Ox O2 Delivery O2 Flow Rate FiO2 05/01/17 08:57 18 05/01/17 08:00 97.0 57 17 126/65 (85) 96 05/01/17 04:00 98.2 74 20 119/60 (79) 93 05/01/17 00:00 96.8 75 20 117/56 (76) 95 04/30/17 20:00 98.6 75 22 133/64 (87) 96 04/30/17 18:12 97.2 63 17 134/68 (90) 100 04/30/17 17:15 98.2 77 14 127/65 (85) 97 Room Air 04/30/17 17:00 69 14 119/58 (78) 100 Room Air 04/30/17 16:45 62 12 118/57 (77) 97 Room Air 04/30/17 16:33 98.4 66 12 116/66 (83) 96 Room Air 04/30/17 12:50 98.4 79 17 119/63 (81) 97 04/30/17 12:20 98.1 88 18 121/71 (88) 97 I/O 04/30/17 04/30/17 04/30/17 05/01/17 05/01/17 05/01/17 06:59 14:59 22:59 06:59 14:59 22:59 Intake Total 1500 ml 720 ml Output Total 200 ml 10 ml Balance -200 ml 1490 ml 720 ml Intake Oral 720 ml IV Total 1500 ml Output Urine Total 200 ml Estimated Blood Loss 10 ml # Voids 3 # Bowel Movements 0 Result Diagram: 04/30/17 0445 04/30/17 0453 Imaging Last Impressions Hand X-Ray 04/29/172247 Signed Impressions: Service Date/Time: Saturday, April 29, 2017 22:52 - CONCLUSION: The osseous structures and are grossly intact. Minor Mckeon MD Objective Remarks GENERAL: NAD SKIN: Warm and dry. HEAD: Normocephalic. EYES: No scleral icterus. No injection or drainage. NECK: Supple, trachea midline. No JVD or lymphadenopathy. CARDIOVASCULAR: Regular rate and rhythm without murmurs, gallops, or rubs. RESPIRATORY: Breath sounds equal bilaterally. No accessory muscle use. GASTROINTESTINAL: Abdomen soft, non-tender, nondistended. MUSCULOSKELETAL: No cyanosis, or edema. BACK: Nontender without obvious deformity. No CVA tenderness. A/P Problem List: (1) laceration flexor digitorum profundus zone II left little finger (2) laceration ulnar digital nerve left little finger (3) laceration flexor digitorum superificialis zone II left little finger (4) laceration ulnar collateral ligament metacarpophalangeal joint left little finger (5) Laceration of hand, left, complicated ICD Code: S61.412A - Laceration without foreign body of left hand, initial encounter Assessment and Plan 31 yrs old man with 1. rupture of the previously repaired FDP and FDS zone II left little finger Management per Hand surgery s/p Exploration and re-exploration, repair flexor digitorum profundus and flexor digitorum superficialis zone 2 left little finger. Pain management accordingly 2. IV drug abuse No track white or areas of cellulitis identified Cessation counseling provided 3. Tobacco abuse Cessation counseling provided FEN NS at 75 cc/hr Electrolytes: Monitor and replete when necessary SCDs Discharge Planning Discharge patient to home Condition on discharge: Improved Regular Diet as tolerated Ad Erica activity Rx written: see EMR Follow-up with primary care physician in 1 week Hand surgery per Protocol Andrae Barton MD May 01, 2017 10:21
[2017-05-01 12:00] VITALS: BP 125/67; PULSE 58; RESP 17; TEMP 97.3; O2SAT 97
== END 2017-05-01 13:18 | disposition home or self-care (01) | DRG 581 ==
LOC: NEPE 22:15 → NEDA 04-30 00:14 → NEPGCP 04-30 02:07 → N06B 04-30 13:09 → N07B 04-30 17:56
PROVIDERS: ADMIT Hospitalist; ATTEND Hospitalist
PROC: 0LQ80ZZ Repair Left Hand Tendon, Open Approach (ICD-10-PCS; principal; 2017-04-30 14:19)
DX: S61.217A Laceration without foreign body of left little finger without damage to nail, initial encounter (principal); I10 Essential (primary) hypertension; K21.9 Gastro-esophageal reflux disease without esophagitis; F15.10 Other stimulant abuse, uncomplicated; F11.10 Opioid abuse, uncomplicated; F12.10 Cannabis abuse, uncomplicated; F17.210 Nicotine dependence, cigarettes, uncomplicated; W01.0XXA Fall on same level from slipping, tripping and stumbling without subsequent striking against object, initial encounter
CPT/HCPCS: 73130; 80048; 85025; 85610; 85730; 99285; J0690; J2270; J7030